=== PATIENT | male | born 1960 | race African-American/Black ===

== ENCOUNTER 2018-03-31 07:09 | Emergency (ER) | payer MEDICARE ==
[2018-03-31 07:17] VITALS: BP 155/96
[2018-03-31] MEDS ORDERED: DEXAMETHASONE SOD PHOS INJ 10 MG/1 ML VIAL IM ONE (07:45)
[2018-03-31] MEDS ORDERED: HYDROCODONE/ACETAMINOPHEN 5-325 MG TABLET PO ONE (07:45)
[2018-03-31] MEDS ORDERED: HYDROXYZINE PAMOATE 25 MG CAPSULE PO ONE (07:46)
--- NOTE | 2018-03-31 07:51 | ER Document Report ---
ED Skin Rash/Insect Bite/Abscs - General Chief Complaint: Insect Bite Stated Complaint: RIGHT ARM PAIN Time Seen by Provider: 03/31/18 07:35 Mode of Arrival: Ambulatory Information source: Patient Notes: Patient is a 58-year-old male who presents to the ER today for bug bites all over his body after sleeping in a house/bed last night with known bedbugs. Patient states he has slept here before and also had bedbug bites. Patient states that he had to sleep her last night as he is in town only for the day and had nowhere else to sleep. He states he does not ever have to sleep there again. Patient states that he took Benadryl last night and this morning which helped a little. He admits to blisters over a lot of the bites, some that have burst and are weeping. TRAVEL OUTSIDE OF THE [place] IN LAST 30 DAYS: No - Related Data Allergies/Adverse Reactions: No Known Allergies Allergy (Unverified 03/31/18 07:43) Past Medical History - General Information source: Patient - Social History Smoking Status: Current Every Day Smoker Frequency of alcohol use: Heavy Drug Abuse: Marijuana Family History: Reviewed & Not Pertinent Patient has suicidal ideation: No Patient has homicidal ideation: No - Past Medical History Cardiac Medical History: Reports: Hx Hypertension Renal/ Medical History: Denies: Hx Peritoneal Dialysis Past Surgical History: Reports: Hx Appendectomy Review of Systems - Review of Systems Constitutional: No symptoms reported EENT: No symptoms reported Cardiovascular: No symptoms reported Respiratory: No symptoms reported Gastrointestinal: No symptoms reported Genitourinary: No symptoms reported Male Genitourinary: No symptoms reported Musculoskeletal: No symptoms reported Skin: See HPI Hematologic/Lymphatic: No symptoms reported Neurological/Psychological: No symptoms reported Physical Exam - Vital signs Vitals: Temp Pulse Resp BP Pulse Ox 97.4 F 82 20 155/96 H 94 03/31/18 07:15 03/31/18 07:15 03/31/18 07:15 03/31/18 07:15 03/31/18 07:15 - Notes Notes: PHYSICAL EXAMINATION: GENERAL: Uncomfortable appearing, but in no acute distress. HEAD: Atraumatic, normocephalic. EYES: Pupils equal round and reactive to light, extraocular movements intact, sclera anicteric, conjunctiva are normal. ENT: ear canals without erythema or foreign body, TMs pearly lamar with good bony landmarks, nares patent, oropharynx clear without exudates. Moist mucous membranes. Airway patent NECK: Normal range of motion, supple without lymphadenopathy LUNGS: CTAB and equal. No wheezes rales or rhonchi. HEART: Regular rate and rhythm without murmurs EXTREMITIES: Normal range of motion, no pitting edema. No cyanosis. NEUROLOGICAL: Cranial nerves grossly intact. Normal sensory/motor exams. PSYCH: Normal mood, normal affect. SKIN: Warm, Dry, normal turgor, erythematous macules with overlying clear papules over right arm, right posterior neck, right upper and lower back, left ankle, left hip, some with large blisters, some blisters open and weeping clear fluid Course - Re-evaluation Re-evalutation: 03/31/18 07:50 Patient given steroid injection here, sent home with hydroxyzine and Keflex for some of the blisters are open and weeping. - Vital Signs Vital signs: Temp Pulse Resp BP Pulse Ox 97.4 F 82 20 155/96 H 94 03/31/18 07:15 03/31/18 07:15 03/31/18 07:15 03/31/18 07:15 03/31/18 07:15 Discharge - Discharge Clinical Impression: Bedbug bite Qualifiers: Encounter type: initial encounter Qualified Code(s): W57.XXXA - Bitten or stung by nonvenomous insect and other nonvenomous arthropods, initial encounter Condition: Stable Disposition: HOME, SELF-CARE Additional Instructions: Return immediately for any new or worsening symptoms. Follow up with primary care provider, call tomorrow to make followup appointment. Prescriptions: Cephalexin Monohydrate [Keflex 500 mg Capsule] 500 mg PO BID 5 Days #10 capsule Hydroxyzine Pamoate 25 mg PO Q6 PRN #30 capsule PRN Reason: Forms: Return to Work
== END 2018-03-31 08:02 | disposition home or self-care (01) ==
LOC: ER 07:09
DX: S40.861A Insect bite (nonvenomous) of right upper arm, initial encounter (principal); W57.XXXA Bitten or stung by nonvenomous insect and other nonvenomous arthropods, initial encounter; F17.200 Nicotine dependence, unspecified, uncomplicated; I10 Essential (primary) hypertension
CPT/HCPCS: 99281; 96372; A9270 ×2; J1100

== ENCOUNTER 2018-05-03 07:09 | Emergency (ER) | payer MEDICARE ==
--- NOTE | 2018-05-03 08:14 | ER Document Report ---
ED General - General Chief Complaint: Back Pain Stated Complaint: BACK PAIN Time Seen by Provider: 05/03/18 08:09 Mode of Arrival: Ambulatory Information source: Patient TRAVEL OUTSIDE OF THE [place] 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 [facility]. States he initially injured his back in 1980. Patient states he just wanted "shot of Depo-Medrol" and wants to leave after. Does not want any imaging done. Reports pain is 9 out of 10, sharp and throbbing. Denies fevers, chills, chest pain,palpitations, shortness of breath, dyspnea, nausea, vomiting, diarrhea, abdominal pain, hematuria,blurred vision, double vision, loss of vision, speech changes, LH, dizziness, syncope, headaches, wheezing, ST, URI, neck pain, weakness, bowel or bladder dysfunction, saddle anesthesia, numbness or tingling in bilateral upper or lower extremities equally, muscle paralysis, weakness in bilateral upper or lower extremities equally or rash. Denies IV drug use. - Related Data Allergies/Adverse Reactions: No Known Allergies Allergy (Verified 05/03/18 07:11) Past Medical History - General Information source: Patient - Social History Smoking Status: Unknown if Ever Smoked Family History: Reviewed & Not Pertinent Patient has suicidal ideation: No Patient has homicidal ideation: No - Past Medical History Cardiac Medical History: Reports: Hx Hypertension Renal/ Medical History: Denies: Hx Peritoneal Dialysis Past Surgical History: Reports: Hx Appendectomy Review of Systems - Review of Systems Constitutional: No symptoms reported EENT: No symptoms reported Cardiovascular: No symptoms reported Respiratory: No symptoms reported Gastrointestinal: No symptoms reported Genitourinary: No symptoms reported Male Genitourinary: No symptoms reported Musculoskeletal: See HPI Skin: No symptoms reported Hematologic/Lymphatic: No symptoms reported Neurological/Psychological: No symptoms reported Physical Exam - Vital signs Vitals: Temp Pulse Resp BP Pulse Ox 97.0 F 94 20 153/119 H 97 05/03/18 07:18 05/03/18 07:18 05/03/18 07:18 05/03/18 07:18 05/03/18 07:18 - Notes Notes: PHYSICAL EXAMINATION: GENERAL: Well-appearing, well-nourished and in no acute distress. HEAD: Atraumatic, normocephalic. EYES: Pupils equal round and reactive to light, extraocular movements intact, sclera anicteric, conjunctiva are normal. ENT: Nares patent, oropharynx clear without exudates. Moist mucous membranes. NECK: Normal range of motion, supple without lymphadenopathy LUNGS: Breath sounds clear to auscultation bilaterally and equal. No wheezes rales or rhonchi. HEART: Regular rate and rhythm without murmurs ABDOMEN: Soft, nontender, nondistended abdomen. No guarding, no rebound. No masses appreciated. Musculoskeletal: Normal range of motion, no pitting or edema. No cyanosis. Pain with flexion and extension at 45 degrees, positive straight leg test on right. Normal hip rotation. DTR +2 in BLE equally. Strength 5 out of 5 both distally and proximally to bilateral lower extremities normal motor and sensory function in BLE equally. Distal pulses + 2 BLE equally. Noted paraspinal tenderness near L2 and L3. No spinal tenderness. No CVA tenderness bilaterally. Femoral pulses + 2 bilaterally and equally. No abrasions, scars, lacerations, ecchymosis of any recent trauma. normal gait. NEUROLOGICAL: Cranial nerves grossly intact. Normal speech, normal gait. Normal sensory, motor exams SKIN: Warm, Dry, normal turgor, no rashes or lesions noted. - Psychological Associated symptoms: Aggressive, Agitated, Combative Course - Re-evaluation Re-evalutation: 05/03/18 08:43 Afebrile, vitals stable, no distress male who is very aggressive towards provider, was demanding "I want to get my shot now and I want to leave now". This provider tried to discuss with patient that we have been seeing other patients, there are only 2 providers in the ED at this time and we have been dealing with emergencies, we apologize for the weight and understand his frustration however we are going as fast as we can go in the safest manner. He was angry that he had to wait for her nurse to administer his injections. Pt given injection of Depo-Medrol and Toradol for pain control. Presentation of a well appearing patient complaining of acute on chronic back pain. No rapid progression of symptoms, systemic symptoms including fevers, chills, weight loss , history of recent bacterial infection, bilateral symptoms, numbness, weakness , difficulty walking, urinary retention or bowel incontinence, personal history of cancer, immunosuppression, diabetes, known AAA, or history of IV drug use. Exam is without point tenderness over vertebral bodies, pulsatile abdominal mass , and patient has symmetric and intact lower extremity strength, sensation, and reflexes without clonus. 2+ symmetric medial malleolar and dorsalis pedis pulses Based on history and physical, I have a very low suspicion of a concerning etiology of pain including epidural compression syndrome, spinal infection, transverse myelitis, malignancy, abdominal aortic aneurysm, renal colic, acute lower extremity claudication, neurogenic claudication, ankylosing spondylitis, or other intra-abdominal process. Due to absence of concerning risk factors in history and physical as well as absence of rapidly progressive, severe, or bilateral symptoms, will defer imaging at this point. Plan to manage conservatively with outpatient analgesia, analgesia, and physical therapy. - Acetaminophen 650 q 4 + ibuprofen 600 q 6 - Continue normal daily activities as tolerated by pain - Provide with standard musculoskeletal back pain exercise instructions - Instruct to follow up with primary care provider if symptoms not improving - Provide careful return precautions and concerning symptoms to watch for. I have reevaluated this patient multiple times and no significant life threatening changes, no signs of toxicity, sepsis or peritonitis are noted. The patient and I have discussed the diagnosis and risks, and we agree with discharging home and close follow-up. We also discussed returning to the Emergency Department immediately if new or worsening symptoms occur with the understanding that symptoms and presentations can change. At this time will discharge with return precautions and follow-up recommendations. Verbal discharge instructions given a the bedside and opportunity for questions given. We have discussed the symptoms which are most concerning (e.g., saddle anesthesia, urinary or bowel incontinence or retention, changing or worsening pain) that necessitate immediate return. Medication warnings reviewed. All questions and concerns answered by this provider. Patient is in agreement with this plan and has verbalized understanding of return precautions and the need for primary care follow-up in the next 24-72 hours. Patient verbalized understanding of plan of care and agree with plan of care. - Vital Signs Vital signs: Temp Pulse Resp BP Pulse Ox 97.0 F 94 20 153/119 H 97 05/03/18 07:18 05/03/18 07:18 07/07/18 07:18 05/03/18 07:18 05/03/18 07:18 Discharge - Discharge Clinical Impression: Acute exacerbation of chronic low back pain Condition: Stable Disposition: HOME, SELF-CARE Instructions: Low Back Pain ([facility]), Stretching Exercises for the Back ([facility]), Chronic Back Pain ([facility]) Additional Instructions: You have been seen in the Emergency Department (ED) today for back pain. Your workup and exam have not shown any acute abnormalities and you are likely suffering from an acute exacerbation of your chronic back pain from problems with your discs, but there is no treatment that will fix your symptoms at this time. Please take the naproxen that has been prescribed as directed. You should also purchase a local lidocaine cream such as "aspercreme with lidocaine " and use per bottle instructions to the affected area. Apply heat to the area as often as you are able. Continue to keep active and avoid prolonged periods of bed rest. Please follow up with your doctor as soon as possible regarding today's ED visit and your back pain. Return to the ED for worsening back pain, fever, weakness or numbness of either leg, or if you develop either (1) an inability to urinate or have bowel movements, or (2) loss of your ability to control your bathroom functions (if you start having "accidents"), or if you develop other new symptoms that concern you.concern you. Return immediately for any new or worsening symptoms. Follow up with primary care provider, call tomorrow to make followup appointment. Referrals: MARY KAY IBANEZ MD [ACTIVE STAFF] - Follow up in 3-5 days MIMA BOSTON MD [ACTIVE STAFF] - Follow up in 3-5 days
[2018-05-03] MEDS ORDERED: KETOROLAC TROMETHAMINE 60 MG/2 ML SDV IM ONE (08:47)
[2018-05-03] MEDS ORDERED: METHYLPREDNISOLONE ACETATE INJ 40 MG/1 ML ML IM STA (08:47)
[2018-05-03 08:58] VITALS: BP 140/90
== END 2018-05-03 08:58 | disposition home or self-care (01) ==
LOC: ER 07:09
DX: M54.5 Low back pain (principal); G89.29 Other chronic pain; I10 Essential (primary) hypertension
CPT/HCPCS: 99283; 96372; J1885; J1020

== ENCOUNTER 2018-05-05 09:45 | Emergency (ER) | payer MEDICARE ==
[2018-05-05 09:53] VITALS: BP 144/91
--- NOTE | 2018-05-05 10:04 | ER Document Report ---
ED General - General Chief Complaint: Sore Throat Stated Complaint: THROAT PAIN Time Seen by Provider: 05/05/18 09:59 Notes: 58-year-old male here with complaints of a pill stuck in his throat. Approximately 2 days ago, he attempted to swallow a very large Advil pill and states that he immediately felt like it was stuck in his throat. He was eventually able to swallow but states that he still has some irritation in his throat as if the pill is still there. He has tried drinking cold liquids and eating bread with not much relief. He is able to eat and drink otherwise and is tolerating his secretions. Denies fevers chills or any other symptoms. TRAVEL OUTSIDE OF THE [place] IN LAST 30 DAYS: No - Related Data Allergies/Adverse Reactions: No Known Allergies Allergy (Verified 05/03/18 07:11) Past Medical History - Social History Smoking Status: Unknown if Ever Smoked Family History: Reviewed & Not Pertinent Patient has suicidal ideation: No Patient has homicidal ideation: No - Past Medical History Cardiac Medical History: Reports: Hx Hypertension Renal/ Medical History: Denies: Hx Peritoneal Dialysis Past Surgical History: Reports: Hx Appendectomy Review of Systems - Review of Systems Notes: See history of present illness for pertinent positive review of systems; otherwise all review of systems have been reviewed and are negative Physical Exam - Vital signs Vitals: Temp Pulse Resp BP Pulse Ox 97.7 F 77 18 144/91 H 95 05/05/18 09:52 05/05/18 09:52 05/05/18 09:52 05/05/18 09:52 05/05/18 09:52 - Notes Notes: PHYSICAL EXAMINATION: GENERAL: Well-appearing and in no acute distress. HEAD: Atraumatic, normocephalic. EYES: Pupils equal round and reactive to light, extraocular movements intact, sclera anicteric, conjunctiva are normal. ENT: nares patent, oropharynx clear without exudates. Moist mucous membranes. NECK: Normal range of motion, supple without lymphadenopathy LUNGS: CTAB and equal. No wheezes rales or rhonchi. HEART: Regular rate and rhythm without murmurs ABDOMEN: Soft, no tenderness. No facial grimacing/wincing upon palpation. No guarding, no rebound. EXTREMITIES: Normal range of motion, no pitting edema. No cyanosis. NEUROLOGICAL: Cranial nerves grossly intact. Normal sensory/motor exams. PSYCH: Normal mood, normal affect. SKIN: Warm, Dry, normal turgor, no rashes or lesions noted Course - Re-evaluation Re-evalutation: 05/05/18 10:03 MEDICAL DECISION MAKING: Concern for throat irritation from the pill I believe it is unlikely that the pill is still in his posterior oropharynx He has no respiratory distress and is swallowing without difficulty Discussed with him to follow-up with ENT (info provided) for possible scoping Also instructed him to drink warm liquids such as coffee and tea Also instructed him to use Tylenol/Motrin for pain Patient understands and agrees to the plan of care - Vital Signs Vital signs: Temp Pulse Resp BP Pulse Ox 97.7 F 77 18 144/91 H 95 05/05/18 09:52 05/05/18 09:52 05/05/18 09:52 05/05/18 09:52 05/05/18 09:52 Discharge - Discharge Clinical Impression: Throat pain Condition: Good Disposition: HOME, SELF-CARE Additional Instructions: You were [facility] in [facility]. Drink plenty of warm liquids such as coffee & tea to help with the irritation. Please followup with your primary physician in the next few days for further management /evaluation. Please return to the emergency department for worsening of symptoms or any symptom that you deem to be concerning or life-threatening. Thank you for allowing us to be part of your care. Referrals: RISHI MALDONADO DO [ASSOCIATE] - Follow up in 3-5 days
== END 2018-05-05 10:04 | disposition home or self-care (01) ==
LOC: ER 09:45
DX: R07.0 Pain in throat (principal); I10 Essential (primary) hypertension
CPT/HCPCS: 99282

== ENCOUNTER 2018-06-05 07:11 | Emergency (ER) | payer MEDICARE, OTHER ==
--- NOTE | 2018-06-05 08:27 | ER Document Report ---
ED Medical Screen (RME) - General Chief Complaint: Urinary Problem Stated Complaint: URINATION PROBLEMS Time Seen by Provider: 06/05/18 08:23 Mode of Arrival: Ambulatory Information source: Patient Notes: Patient presents with complaints of urinary issues reports he is not voiding well. Also complains of possible STD. Reports of erectile dysfunction. I have greeted and performed a rapid initial assessment of this patient. A comprehensive ED assessment and evaluation of the patient, analysis of test results and completion of the medical decision making process will be conducted by additional ED providers. TRAVEL OUTSIDE OF THE [place] IN LAST 30 DAYS: No - Related Data Allergies/Adverse Reactions: No Known Allergies Allergy (Verified 05/03/18 07:11) Past Medical History - Social History Chew tobacco use (# tins/day): No Frequency of alcohol use: Social Drug Abuse: None - Past Medical History Cardiac Medical History: Reports: Hx Hypertension Renal/ Medical History: Denies: Hx Peritoneal Dialysis Past Surgical History: Reports: Hx Appendectomy Physical Exam - Vital signs Vitals: Temp Pulse Resp BP Pulse Ox 98.0 F 82 18 123/87 H 95 06/05/18 07:31 06/05/18 07:31 06/05/18 07:31 06/05/18 07:31 06/05/18 07:31 Course - Vital Signs Vital signs: Temp Pulse Resp BP Pulse Ox 97.7 F 78 18 140/99 H 96 06/05/18 08:21 06/05/18 08:21 06/05/18 07:31 06/05/18 08:21 06/05/18 08:21 Doctor's Discharge - Discharge Referrals: ASHER PHILLIPS MD [Primary Care Provider] - Follow up as needed
[2018-06-05 08:51] LABS: APPEARANCE,URINE CLEAR; BILIRUBIN,URINE NEGATIVE (NEGATIVE); COLOR,URINE STRAW; GLUCOSE, URINE >=500 mg/dL (NEGATIVE); KETONES,URINE TRACE mg/dL (NEGATIVE); LEUKOCYTE ESTERASE,URINE NEGATIVE (NEGATIVE); NITRITE,URINE NEGATIVE (NEGATIVE); PROTEIN,URINE NEGATIVE (NEGATIVE); URINE SPECIFIC GRAVITY 1.032; UROBILINOGEN,URINE NEGATIVE mg/dL (<2.0)
[2018-06-05] MEDS ORDERED: LIDOCAINE 1% INJ-PF (10 MG/ML) 30 ML SDV INJ ONE (09:23)
[2018-06-05] MEDS ORDERED: CEFTRIAXONE INJ 250 MG VIAL IM ONE (09:23)
[2018-06-05] MEDS ORDERED: AZITHROMYCIN 250 MG TABLET PO ONE (09:23)
[2018-06-05] MEDS ORDERED: MUPIROCIN 2% OINTMENT 22 GM TP ONE (09:23)
--- NOTE | 2018-06-05 09:36 | ER Document Report ---
ED Medical Screen (RME) - General Chief Complaint: Urinary Problem Stated Complaint: URINATION PROBLEMS Time Seen by Provider: 06/05/18 08:23 Mode of Arrival: Ambulatory Notes: 58-year-old male presented to ED for complaint of urinary frequency urgency voiding all the time. He states that the doctor put him on some blood pressure medicine and makes him urinate constantly and has erectile dysfunction. He states she is also concerned because he had unprotected sex with a lady and then he had some drainage around his penis. He stated he quit taking his blood sugar pressure medicine because he got tired of urinating constantly. He states he smokes a pack a day drinks at least a couple times a week and used cocaine about a week ago and smokes pot occasionally. He was seen in the pit and ordered a urine and a urine for GC and chlamydia. His UA shows greater than 500 glucose with a specific gravity 1.032. His Accu-Chek was greater than 500. He has been ordered labs and IV fluids and 10 units regular insulin Per Dr Christensen's suggestion. Patient will need to be reevaluated after the fluids. I have greeted and performed a rapid initial assessment of this patient. A comprehensive ED assessment and evaluation of the patient, analysis of test results and completion of medical decision making process will be conducted by an additional ED providers. TRAVEL OUTSIDE OF THE [place] IN LAST 30 DAYS: No - Related Data Allergies/Adverse Reactions: No Known Allergies Allergy (Verified 05/03/18 07:11) Past Medical History - Social History Chew tobacco use (# tins/day): No Frequency of alcohol use: Social Drug Abuse: None - Past Medical History Cardiac Medical History: Reports: Hx Hypertension Renal/ Medical History: Denies: Hx Peritoneal Dialysis Past Surgical History: Reports: Hx Appendectomy Physical Exam - Vital signs Vitals: Temp Pulse Resp BP Pulse Ox 98.0 F 82 18 123/87 H 95 06/05/18 07:31 06/05/18 07:31 06/05/18 07:31 06/05/18 07:31 06/05/18 07:31 Course - Vital Signs Vital signs: Temp Pulse Resp BP Pulse Ox 97.7 F 78 18 140/99 H 96 06/05/18 08:21 06/05/18 08:21 06/05/18 07:31 06/05/18 08:21 06/05/18 08:21 - Laboratory Laboratory results interpreted by me: 06/05/18 08:35 Urine Glucose (UA) >=500 H Urine Ketones TRACE H Urine Ascorbic Acid 40 H Doctor's Discharge - Discharge Referrals: ASHER PHILLIPS MD [Primary Care Provider] - Follow up as needed
[2018-06-05] MEDS: RINGERS SOLUTION,LACTATED 1,000 ML IV PRN ×2 (10:01→10:31)
[2018-06-05 10:03] LABS: ABSOLUTE LYMPHOCYTES (AUTO) 1.4 10^3/uL (0.5-4.7); ABSOLUTE MONOCYTES (AUTO) 0.3 10^3/uL (0.1-1.4); ABSOLUTE NEUT (AUTO) 2.6 10^3/uL (1.7-8.2); BASOPHILS % (AUTO) 0.5 % (0-2); EOSINOPHILS % (AUTO) 0.6 % (0-6); HEMATOCRIT 45.5 % (37.9-51.0); HEMOGLOBIN 15.1 g/dL (13.5-17.0); LYMPHOCYTES % (AUTO) 32.7 % (13-45); MEAN CORPUSCULAR HEMOGLOBIN 29.2 pg (27.0-33.4); MEAN CORPUSCULAR HGB CONC 33.2 g/dL (32.0-36.0); MEAN CORPUSCULAR VOLUME 88 fl (80-97); MONOCYTES % (AUTO) 6.4 % (3-13); PLATELET COUNT 217 10^3/uL (150-450); RED BLOOD COUNT 5.18 10^6/uL (4.35-5.55); RED CELL DISTRIBUTION WIDTH 13.4 % (11.5-14.0); SEGMENTED NEUTROPHILS % (AUTO) 59.8 % (42-78); TOTAL CELLS COUNTED % (AUTO) 100 %; WHITE BLOOD COUNT 4.4 10^3/uL (4.0-10.5)
[2018-06-05 10:06] LABS: VENOUS BLOOD BASE EXCESS -2.4 mmol/L; VENOUS BLOOD HCO3 23.4 mmol/L (20-32); VENOUS BLOOD PCO2 43.9 mmHg (35-63); VENOUS BLOOD PH 7.34 (7.30-7.42)
[2018-06-05 10:25] LABS: ALANINE AMINOTRANSFERASE 23 U/L (21-72); ALKALINE PHOSPHATASE 246 U/L (38-126); ANION GAP 16 (5-19); ASPARTATE AMINO TRANSFERASE 20 U/L (17-59); BILIRUBIN,DIRECT 0.3 mg/dL (0.0-0.4); BILIRUBIN,TOTAL 0.3 mg/dL (0.2-1.3); BLOOD UREA NITROGEN 12 mg/dL (7-20); CALCIUM 9.2 mg/dL (8.4-10.2); CARBON DIOXIDE 22 mmol/L (22-30); CHLORIDE 94 mmol/L (98-107); CREATINE KINASE 113 U/L (55-170); POTASSIUM 4.6 mmol/L (3.6-5.0); SODIUM 132.2 mmol/L (137-145); TOTAL PROTEIN 6.4 g/dL (6.3-8.2)
[2018-06-05 10:31] LABS: CHLAM PCR NOT DETECTED (NOT DETECT); GON PCR NOT DETECTED (NOT DETECT)
[2018-06-05] MEDS ORDERED: INSULIN REG, HUMAN 100 UNIT/ML 3 ML VIAL (PYX) SUBCUT ONE (10:33)
[2018-06-05 10:39] LABS: CREATINE KINASE MB 0.93 ng/mL (<4.55)
[2018-06-05 10:41] LABS: GLUCOSE 607 mg/dL (75-110)
[2018-06-05 10:43] LABS: TROPONIN I < 0.012 ng/mL
--- NOTE | 2018-06-05 11:16 | ER Document Report ---
ED General <LITTLE CH - Last Filed: 06/05/18 13:09> - General Mode of Arrival: Ambulatory Information source: Patient TRAVEL OUTSIDE OF THE [place] IN LAST 30 DAYS: No <WHITNEY WHITE - Last Filed: 06/05/18 13:36> - General Chief Complaint: Urinary Problem Stated Complaint: URINATION PROBLEMS Time Seen by Provider: 06/05/18 08:23 Notes: 58-year-old male who presents to the emergency department today with complaints of a rash on his penis and concerns for STD. Patient states "my girlfriend went down on me and she has gingivitis so I think I have an infection now". Patient also mentions that since being started on lisinopril he has had erectile dysfunction. Patient states that he has been told he had diabetes in the past but this was after eating sweets. Patient states he has had urinary frequency for the last week and a half. (WHITNEY WHITE) - Related Data Allergies/Adverse Reactions: No Known Allergies Allergy (Verified 05/03/18 07:11) Past Medical History - General Information source: Patient - Social History Smoking Status: Current Every Day Smoker Chew tobacco use (# tins/day): No Frequency of alcohol use: Occasional Drug Abuse: Marijuana Family History: Reviewed & Not Pertinent Patient has suicidal ideation: No Patient has homicidal ideation: No - Past Medical History Cardiac Medical History: Reports: Hx Hypertension Renal/ Medical History: Denies: Hx Peritoneal Dialysis Past Surgical History: Reports: Hx Appendectomy <WHITNEY WHITE - Last Filed: 06/05/18 13:36> Review of Systems - Review of Systems Constitutional: No symptoms reported EENT: No symptoms reported Cardiovascular: No symptoms reported Respiratory: No symptoms reported Gastrointestinal: No symptoms reported Genitourinary: No symptoms reported Male Genitourinary: See HPI, Erectile dysfunction, Other - penile itching Musculoskeletal: No symptoms reported Skin: No symptoms reported Hematologic/Lymphatic: No symptoms reported Neurological/Psychological: No symptoms reported -: Yes All other systems reviewed and negative <WHITNEY WHITE - Last Filed: 06/05/18 13:36> Physical Exam <LITTLE CH - Last Filed: 06/05/18 13:09> <WHITNEY WHITE - Last Filed: 06/05/18 13:36> - Vital signs Vitals: Temp Pulse Resp BP Pulse Ox 98.0 F 82 18 123/87 H 95 06/05/18 07:31 06/05/18 07:31 06/05/18 07:31 06/05/18 07:31 06/05/18 07:31 - Notes Notes: Physical Exam: General: Alert, appears well. HEENT: Normocephalic. Atraumatic. PERRL. Extraocular movements intact. Oropharynx clear. Neck: Supple. Non-tender. Respiratory: No respiratory distress. Clear and equal breath sounds bilaterally. Cardiovascular: Regular rate and rhythm. Abdominal: Normal Inspection. Non-tender. No distension. Normal Bowel Sounds. Male genitourinary: White smegma at the base of the penis, patient complains that this area itches. Back: Non-tender. No deformity or step off. Extremities: Moves all four extremities. Upper extremities: Normal inspection. Normal ROM. Lower extremities: Normal inspection. No edema. Normal ROM. Neurological: Normal cognition. AAOx4. Normal speech. Psychological: Normal affect. Normal Mood. Skin: Warm. Dry. Normal color. (WHITNEY WHITE) Course - Laboratory Result Diagrams: 06/05/18 09:42 06/05/18 09:42 - EKG Interpretation by Al EKG shows normal: Sinus rhythm, Union, Intervals, QRS Complexes. abnormal: ST-T Waves - Inferior T abnormalities Rhythm: APC's Union/QRS: Left axis deviation When compared to previous EKG there are: Previous EKG unavailable <LITTLE CH - Last Filed: 06/05/18 13:09> - Laboratory Result Diagrams: 06/05/18 09:42 06/05/18 09:42 <WHITNEY WHITE - Last Filed: 06/05/18 13:36> - Vital Signs Vital signs: Temp Pulse Resp BP Pulse Ox 97.7 F 78 20 128/97 H 95 06/05/18 08:21 06/05/18 08:21 06/05/18 12:13 06/05/18 12:13 06/05/18 12:13 - Laboratory Laboratory results interpreted by ca: 06/05/18 06/05/18 06/05/18 08:35 09:24 09:42 Sodium 132.2 L Chloride 94 L Glucose 607 H* POC Glucose > 550 H* Hemoglobin A1c % Alkaline Phosphatase 246 H Urine Glucose (UA) >=500 H Urine Ketones TRACE H Urine Ascorbic Acid 40 H 06/05/18 06/05/18 06/05/18 09:42 10:27 11:48 Sodium Chloride Glucose POC Glucose 522 H* 455 H* Hemoglobin A1c % > 14.0 H Alkaline Phosphatase Urine Glucose (UA) Urine Ketones Urine Ascorbic Acid Discharge <LITTLE CH - Last Filed: 06/05/18 13:09> <WHITNEY WHITE - Last Filed: 06/05/18 13:36> - Discharge Clinical Impression: Cocaine abuse, Yeast infection of the skin Type 2 diabetes mellitus Qualifiers: Diabetes mellitus superintendent container terminal insulin use: without superintendent container terminal use Diabetes mellitus complication status: with unspecified complications Qualified Code(s): E11.8 - Type 2 diabetes mellitus with unspecified complications Condition: Stable Disposition: HOME, SELF-CARE Additional Instructions: Diabetes: You have an abnormally high blood sugar called diabetes. Uncontrolled high blood sugar leads to early heart disease, strokes, nerve damage, eye damage, and kidney damage. All diabetics should follow a diet designed to control the blood sugar. Overweight diabetics should exercise regularly and lose weight. If this is not sufficient to control the blood sugar, pills or insulin shots are necessary. Younger people who develop diabetes almost always require insulin daily. Home testing of blood sugars or urine sugar is required. Diabetic teaching is available to help you figure insulin doses and monitor the blood sugar. Call the physician if there is faintness, excess sleepiness, or very rapid breathing. If hypoglycemia (LOW blood sugar) develops, symptoms are shakiness, weakness, sweating, and confusion. In this case, you should eat or drink something with sugar at once. Cocaine Abuse: Cocaine causes many dangerous medical problems. Problems can occur even with "usual" amounts. Cocaine affects judgement, creating a sense of invulnerability. Cocaine users often make bad decisions that seem "great" at the time. Most cocaine users eventually will be hurt by bad job performance, damaged personal relations, crime, and unsafe sexual practices. Toxic effects of cocaine can include seizures, hallucinations, delusions, high blood pressure, heart damage, or sudden . There's always the risk of a "bad batch." But heart attacks, brain hemorrhages, or cardiac arrest can occur unpredictably even with "normal" use. Injection of cocaine is risky for abscesses, endocarditis (heart infection) , pneumonia, and AIDS. Withdrawal from cocaine often causes anxiety and drug cravings. Some users become paranoid and psychotic. Many treatment programs are available, but you must make the decision to quit. Medication can be prescribed to control the symptoms of cocaine toxicity (beta blockers or benzodiazepines). Withdrawal symptoms may require tranquilizers. Take medications as prescribed for your diabetes. Avoid eating sugar, regular sodas, candy, and sweets in general. Drink plenty of fluids every day. Use Monistat Derm cream on the penis area 3 times a daily for the next several days. Follow-up with your medical doctor to manage your diabetes. Prescriptions: Metformin HCl 1,000 mg PO BID #60 tablet Referrals: ASHER PHILLIPS MD [Primary Care Provider] - Follow up as needed Scribe Attestation: 06/05/18 13:08 I personally performed the services described in the documentation, reviewed and edited the documentation which was dictated to the scribe in my presence, and it accurately records my words and actions. (LITTLE CH) Scribe Documentation - Scribe Written by Ofelia:: Ofelia Wilcox, 06/05/2018 1335 acting as scribe for :: Elissa <WHITNEY WHITE - Last Filed: 06/05/18 13:36>
--- NOTE | 2018-06-05 11:36 | EKG REPORT ---
SEVERITY:- ABNORMAL ECG - SINUS RHYTHM ATRIAL PREMATURE COMPLEX BORDERLINE LEFT AXIS DEVIATION ABNORMAL T, CONSIDER ISCHEMIA, INFERIOR LEADS : Confirmed by: Gi Harris MD 05-Jun-2018 11:35:27
[2018-06-05 12:15] VITALS: BP 128/97
[2018-06-05 12:24] LABS: URINE AMPHETAMINES SCREEN NEGATIVE; URINE BARBITURATES SCREEN NEGATIVE; URINE BENZODIAZEPINES SCREEN NEGATIVE; URINE COCAINE SCREEN UNCONFIRMED POSITIVE; URINE MARIJUANA (THC) SCREEN NEGATIVE; URINE METHADONE SCREEN NEGATIVE; URINE PHENCYCLIDINE SCREEN NEGATIVE
== END 2018-06-05 13:16 | disposition home or self-care (01) ==
LOC: ER 07:11
DX: R30.0 Dysuria (principal); F14.10 Cocaine abuse, uncomplicated; B37.2 Candidiasis of skin and nail; E11.8 Type 2 diabetes mellitus with unspecified complications; I10 Essential (primary) hypertension; F17.210 Nicotine dependence, cigarettes, uncomplicated; Z20.2 Contact with and (suspected) exposure to infections with a predominantly sexual mode of transmission
CPT/HCPCS: 93005; 99284; 96372; 96365; 36415; 82553; 82962; 82550; 83735; 85025; 80053; 81001; 84484; 80307; 83036; 87491; 87591; 82803; 93010; A9270 ×3; J3490; J7120; J0696; J1815

== ENCOUNTER 2018-06-15 09:57 | Emergency (ER) | payer OTHER ==
[2018-06-15 10:02] VITALS: BP 128/88
== END 2018-06-15 10:02 | disposition left against medical advice (07) ==
LOC: ER 09:57
DX: Z53.21 Procedure and treatment not carried out due to patient leaving prior to being seen by health care provider (principal)
CPT/HCPCS: 82962

== ENCOUNTER 2018-07-20 08:41 | Emergency (ER) | payer MEDICARE, OTHER ==
[2018-07-20 08:52] VITALS: BP 147/92
[2018-07-20] MEDS ORDERED: LIDOCAINE 5% (700 MG) TRANSDERMAL ADH..PATCH TP ONE (09:35)
--- NOTE | 2018-07-20 09:36 | RADIOLOGY REPORT (SQ) ---
EXAM DESCRIPTION: SHOULDER RIGHT 2 OR MORE VIEWS COMPLETED DATE/TIME: 07/20/2018 9:21 am REASON FOR STUDY: pain COMPARISON: None. NUMBER OF VIEWS: Three views. TECHNIQUE: Internal rotation, external rotation, and Y view images acquired of the right shoulder. LIMITATIONS: None. FINDINGS: MINERALIZATION: Normal. BONES: No acute fracture or dislocation. No worrisome bone lesions. No significant osteophytes. GLENOHUMERAL JOINT: No significant findings. ACROMIOCLAVICULAR JOINT: No large osteophytes. SOFT TISSUES: No calcifications. VISUALIZED RIBS, SPINE, AND LUNG: No other significant finding. OTHER: No other significant finding. IMPRESSION: NEGATIVE STUDY OF THE RIGHT SHOULDER. NO EXPLANATION FOR PAIN. TECHNICAL DOCUMENTATION: JOB ID: [id number] [employer]- All Rights Reserved Reading location - IP/workstation name: [email or web address]
--- NOTE | 2018-07-20 09:40 | ER Document Report ---
HPI - HPI Patient complains to provider of: Right shoulder pain Onset: Other - 2 weeks Onset/Duration: Persistent Quality of pain: Achy Pain Level: 4 Context: Patient presents complaining of right shoulder pain for the past 2 weeks. Patient denies any injury. Associated Symptoms: Other - Right shoulder pain. denies: Chest pain Exacerbated by: Movement Relieved by: Remaining still Similar symptoms previously: No Recently seen / treated by doctor: No - ROS ROS below otherwise negative: Yes Systems Reviewed and Negative: Yes All other systems reviewed and negative - CONSTITUTIONAL Constitutional: DENIES: Fever - CARDIOVASCULAR Cardiovascular: DENIES: Chest pain - RESPIRATORY Respiratory: DENIES: Trouble Breathing, Coughing - GASTROINTESTINAL Gastrointestinal: DENIES: Nausea - MUSCULOSKELETAL Musculoskeletal: REPORTS: Extremity pain. DENIES: Back Pain, Swelling - DERM Skin Color: Normal Skin Problems: None Past Medical History - General Information source: Patient - Social History Smoking Status: Current Every Day Smoker Smoking Education Provided: Yes Frequency of alcohol use: None Drug Abuse: None Family History: Reviewed & Not Pertinent - Past Medical History Cardiac Medical History: Reports: Hx Hypertension Endocrine Medical History: Reports: Hx Diabetes Mellitus Type 2 Renal/ Medical History: Denies: Hx Peritoneal Dialysis Musculoskeletal Medical History: Reports Other - Back pain Past Surgical History: Reports: Hx Appendectomy Vertical Provider Document - CONSTITUTIONAL Agree With Documented VS: Yes Exam Limitations: No Limitations General Appearance: WD/WN, No Apparent Distress - INFECTION CONTROL TRAVEL OUTSIDE OF THE [place] IN LAST 30 DAYS: No - HEENT HEENT: Atraumatic, Normocephalic - NECK Neck: Normal Inspection, Supple - RESPIRATORY Respiratory: Breath Sounds Normal, No Respiratory Distress - CARDIOVASCULAR Cardiovascular: Regular Rate, Regular Rhythm, No Murmur Pulses: Normal: Radial - BACK Back: Normal Inspection - MUSCULOSKELETAL/EXTREMETIES Musculoskeletal/Extremeties: MAEW, FROM, Tender - Tenderness to right AC joint with range of motion, no edema, no deformity, no dislocation, No Edema. negative: Eccymosis Notes: Tenderness increases with right shoulder extension and abduction - NEURO Level of Consciousness: Awake, Alert, Appropriate Motor/Sensory: No Motor Deficit - DERM Integumentary: Warm, Dry, No Rash Course - Vital Signs Vital signs: Temp Pulse Resp BP Pulse Ox 98.1 F 60 16 147/92 H 99 07/20/18 08:47 07/20/18 08:47 07/20/18 08:47 07/20/18 08:47 07/20/18 08:47 Discharge - Discharge Clinical Impression: Arthritic-like pain Qualifiers: Joint pain location: shoulder Laterality: right Qualified Code(s): M25.511 - Pain in right shoulder Condition: Stable Disposition: HOME, SELF-CARE Instructions: Acetaminophen, Arthritis ([facility]) Additional Instructions: Return immediately for any new or worsening symptoms Followup with your primary care provider, call tomorrow to make a followup appointment Prescriptions: Tramadol HCl [Ultram 50 mg Tablet] 50 mg PO ASDIR PRN #15 tablet PRN Reason: Forms: Smoking Cessation Education Referrals: [facility] [Provider Group] - Follow up as needed [facility] [Provider Group] - Follow up as needed
== END 2018-07-20 09:45 | disposition home or self-care (01) ==
LOC: ER 08:41
DX: M25.511 Pain in right shoulder (principal); F17.200 Nicotine dependence, unspecified, uncomplicated; I10 Essential (primary) hypertension; E11.9 Type 2 diabetes mellitus without complications
CPT/HCPCS: 99283

== ENCOUNTER 2019-11-01 08:52 | Emergency (ER) | payer MEDICARE, OTHER ==
--- NOTE | 2019-11-01 11:12 | ER Document Report ---
HPI - HPI Time Seen by Provider: 11/01/19 09:14 Pain Level: Denies Context: Patient is a 59-year-old male who presents to the emergency department with a chief complaint of rectal and anal pain. Patient states that the area has been itchy and it feels like he has hemorrhoids to the area. He states that he has a history of rectal abscesses in the past. Denies any fever, body aches, chills, or any other symptoms. States that he feels like there is bumps to the area. He has been scratching the area. - CONSTITUTIONAL Constitutional: DENIES: Fever, Chills - EENT EENT: DENIES: Sore Throat, Ear Pain, Eye problems - NEURO Neurology: DENIES: Headache, Weakness, Vision blurred, Dizzinesss / Vertigo - CARDIOVASCULAR Cardiovascular: DENIES: Chest pain - RESPIRATORY Respiratory: DENIES: Trouble Breathing, Coughing - GASTROINTESTINAL Gastrointestinal: DENIES: Abdominal Pain, Black / Bloody Stools Notes: Rectal/anal pain - URINARY Urinary: DENIES: Dysuria, Urgency, Frequency - MUSCULOSKELETAL Musculoskeletal: DENIES: Extremity pain Past Medical History - Social History Smoking Status: Current Every Day Smoker Chew tobacco use (# tins/day): No Frequency of alcohol use: Occasional Drug Abuse: Marijuana Family History: Reviewed & Not Pertinent Patient has suicidal ideation: No Patient has homicidal ideation: No - Past Medical History Cardiac Medical History: Reports: Hx Hypertension Endocrine Medical History: Reports: Hx Diabetes Mellitus Type 2 Renal/ Medical History: Denies: Hx Peritoneal Dialysis Musculoskeletal Medical History: Reports Hx Arthritis Past Surgical History: Reports: Hx Appendectomy Vertical Provider Document - CONSTITUTIONAL Agree With Documented VS: Yes Exam Limitations: No Limitations General Appearance: No Apparent Distress - INFECTION CONTROL TRAVEL OUTSIDE OF THE [place] IN LAST 30 DAYS: No - HEENT HEENT: Atraumatic, Normocephalic, PERRLA - NECK Neck: Normal Inspection - RESPIRATORY Respiratory: No Respiratory Distress - CARDIOVASCULAR Cardiovascular: Regular Rate, Regular Rhythm Pulses: Normal: Radial - GI/ABDOMEN Gastrointestinal: Abdomen Soft, Abdomen Non-Tender Notes: Open sores noted to anal area. No fluctuance noted in the rectum. - MUSCULOSKELETAL/EXTREMETIES Musculoskeletal/Extremeties: FROM - NEURO Level of Consciousness: Awake, Alert, Appropriate Motor/Sensory: No Motor Deficit, No Sensory Deficit - DERM Integumentary: Warm, Dry, No Rash Course - Re-evaluation Re-evalutation: 11/01/19 11:09 Dora RN at bedside. Rectal exam done and no rectal abscess appreciated on exam. Patient does have some very small open sores noted to his rectum. I offered the patient some lidocaine gel. He became very upset and states that, "if you do not know what it is, I have an appointment with GI tomorrow. If you can't help me, I'll just see my GI doctor." I offered him lidocaine, aloe, and hydrocortisone for this problem to help with the itchiness and pain. He states that he did not want it, but I ended up writing a prescription for him anyways. Advised him to follow-up with GI tomorrow. He is in agreement with following up with GI. Follow-up precautions were given. Verbal discharge instructions were given to the patient. They verbalized understanding. They are stable for discharge. - Vital Signs Vital signs: Temp Pulse Resp BP Pulse Ox 98.0 F 65 16 159/105 H 98 11/01/19 08:56 11/01/19 08:56 11/01/19 08:56 11/01/19 08:56 11/01/19 08:56 Discharge - Discharge Clinical Impression: Anal or rectal pain High blood pressure Qualifiers: Hypertension type: unspecified Qualified Code(s): I10 - Essential (primary) hypertension Condition: Stable Disposition: HOME, SELF-CARE Additional Instructions: You were seen here in the ED for anal/rectal pain. You have some pain sores noted to your anal area. There is no abscess noted on your physical exam. You are being sent home with a topical cream to help with the pain and itchiness. Please follow-up with your GI doctor in regards to this visit. If you have worsening symptoms, please return to the emergency department. Your blood pressure was high here in the emergency department. Please follow-up with your primary care provider regards to this visit. Prescriptions: Hydrocortisone/Lidocaine/Aloe [Lidocaine-Hc 2.8-0.55% Gel] 100 gm TOP Q4H PRN #1 gel.w.[email or web address] PRN Reason: Forms: Elevated Blood Pressure
[2019-11-01 11:26] VITALS: BP 171/101
== END 2019-11-01 11:26 | disposition home or self-care (01) ==
LOC: ER 08:52
DX: K62.89 Other specified diseases of anus and rectum (principal); I10 Essential (primary) hypertension; F17.200 Nicotine dependence, unspecified, uncomplicated; E11.9 Type 2 diabetes mellitus without complications
CPT/HCPCS: 99283

== ENCOUNTER 2020-01-13 02:12 | Emergency (ER) | payer MEDICARE ==
--- NOTE | 2020-01-13 03:01 | RADIOLOGY REPORT (SQ) ---
EXAM DESCRIPTION: XR CHEST 1 VIEW COMPLETED DATE/TME: 01/13/2020 02:20 CLINICAL HISTORY: 59 years, Male, SOB COMPARISON: None. NUMBER OF VIEWS: 1 TECHNIQUE: Portable chest LIMITATIONS: None. FINDINGS: The heart size is normal. Mild atheromatous change thoracic aorta. Mild diffuse prominence of the pulmonary interstitium. Tiny bibasilar effusions are suspected. Superimposed airspace opacities in the lung bases. No pneumothorax IMPRESSION: Mild interstitial prominence could reflect interstitial edema and/or pneumonitis. Superimposed airspace opacities over each lung base. Suspected tiny bibasilar effusions. copyright 2010 [employer]- All Rights Reserved
[2020-01-13 03:12] LABS: ABSOLUTE LYMPHOCYTES (AUTO) 1.6 10^3/uL (0.5-4.7); ABSOLUTE MONOCYTES (AUTO) 0.3 10^3/uL (0.1-1.4); ABSOLUTE NEUT (AUTO) 3.6 10^3/uL (1.7-8.2); BASOPHILS % (AUTO) 0.4 % (0-2); EOSINOPHILS % (AUTO) 0.7 % (0-6); HEMATOCRIT 41.4 % (37.9-51.0); HEMOGLOBIN 14.2 g/dL (13.5-17.0); LYMPHOCYTES % (AUTO) 28.3 % (13-45); MEAN CORPUSCULAR HGB CONC 34.2 g/dL (32.0-36.0); MEAN CORPUSCULAR VOLUME 91 fl (80-97); MONOCYTES % (AUTO) 4.6 % (3-13); PLATELET COUNT 188 10^3/uL (150-450); RED BLOOD COUNT 4.56 10^6/uL (4.35-5.55); RED CELL DISTRIBUTION WIDTH 14.1 % (11.5-14.0); TOTAL CELLS COUNTED % (AUTO) 100 %; WHITE BLOOD COUNT 5.5 10^3/uL (4.0-10.5)
[2020-01-13 03:26] LABS: ALBUMIN 3.8 g/dL (3.5-5.0); ALKALINE PHOSPHATASE 110 U/L (38-126); ANION GAP 9 (5-19); ASPARTATE AMINO TRANSFERASE 44 U/L (17-59); BILIRUBIN,TOTAL 0.3 mg/dL (0.2-1.3); BLOOD UREA NITROGEN 19 mg/dL (7-20); CALCIUM 8.9 mg/dL (8.4-10.2); CARBON DIOXIDE 20 mmol/L (22-30); CHLORIDE 109 mmol/L (98-107); CREATINE KINASE 213 U/L (55-170); GLUCOSE 149 mg/dL (75-110); POTASSIUM 3.9 mmol/L (3.6-5.0); TOTAL PROTEIN 6.4 g/dL (6.3-8.2)
[2020-01-13 03:49] LABS: CREATINE KINASE MB 2.72 ng/mL (<4.55); NT PRO BNP 684 pg/mL (<125)
[2020-01-13 03:53] LABS: TROPONIN I < 0.012 ng/mL
[2020-01-13] MEDS ORDERED: ALBUTEROL SULFATE 0.083% NEB 2.5 MG/3 ML AMPUL NEB ONE (04:30)
[2020-01-13] MEDS ORDERED: IPRATROPIUM/ALBUTEROL 0.5-2.5 MG/3 ML AMPUL NEB ONE (04:30)
[2020-01-13] MEDS ORDERED: MAGNESIUM SULFATE/D5W 1 GM/100 ML RTUPB IV ONE ×2 (04:30→04:31)
[2020-01-13] MEDS ORDERED: METHYLPREDNISOLONE INJ 125 MG/2 ML SDV IV ONE (04:31)
[2020-01-13] MEDS ORDERED: LEVOFLOXACIN 750 MG TABLET PO ONE (04:36)
--- NOTE | 2020-01-13 04:43 | ER Document Report ---
ED General - General Chief Complaint: Shortness Of Breath Stated Complaint: DIFFICULTY BREATHING Time Seen by Provider: 01/13/20 04:09 TRAVEL OUTSIDE OF THE [place] IN LAST 30 DAYS: No - HPI Notes: Patient is a 59-year-old male with history of COPD, hypertension, diet- controlled diabetes presents complaining of shortness of breath, productive cough that began last night. He is able to eat and drink without difficulty otherwise. He is urinating normally and having normal bowel movements. Denies drug allergies. Denies any headache, fever, neck pain, URI, sore throat, chest pain, palpitations, syncope, abdominal pain, nausea/vomiting/diarrhea, urinary retention, dysuria, hematuria, or rash. - Related Data Allergies/Adverse Reactions: No Known Allergies Allergy (Verified 07/20/18 08:42) Past Medical History - Social History Smoking Status: Current Every Day Smoker Family History: Reviewed & Not Pertinent Patient has suicidal ideation: No Patient has homicidal ideation: No - Past Medical History Cardiac Medical History: Reports: Hx Hypertension Endocrine Medical History: Reports: Hx Diabetes Mellitus Type 2 Renal/ Medical History: Denies: Hx Peritoneal Dialysis Musculoskeletal Medical History: Reports Hx Arthritis Past Surgical History: Reports: Hx Appendectomy Review of Systems - Review of Systems -: Yes All other systems reviewed and negative Physical Exam - Vital signs Vitals: Pulse Ox 90 L 01/13/20 02:13 - Notes Notes: PHYSICAL EXAMINATION: GENERAL: Well-appearing, well-nourished and in no acute distress. HEAD: Atraumatic, normocephalic. EYES: Pupils equal round and reactive to light, extraocular movements intact, sclera anicteric, conjunctiva are normal. ENT: Nares patent and without discharge. oropharynx clear without exudates. No tonsilar hypertrophy or erythema. Moist mucous membranes. NECK: Normal range of motion, supple without lymphadenopathy LUNGS: very diminished b/l. No retractions. HEART: Regular rate and rhythm without murmurs, rubs, gallops. ABDOMEN: Soft, nontender, nondistended abdomen. No guarding, no rebound. No masses appreciated. Normal bowel sounds present. No CVA tenderness bilaterally. Musculoskeletal: FROM to passive/active. Strength 5+/5. Kelsy neg. No asymmetry to LE's. Extremities: No cyanosis, clubbing, or edema b/l. Peripheral pulses 2+. Capillary refill less than 3 seconds. NEUROLOGICAL: Normal speech, normal gait. PSYCH: Normal mood, normal affect. SKIN: Warm, Dry, normal turgor, no rashes or lesions noted. Course - Re-evaluation Re-evalutation: 01/13/20 04:41 Patient's x-ray does show bilateral basilar pneumonia. He does not have any elevated white count or fever. No tachycardia, significant hypoxia, or tachypn ea. I will give him the basic treatment for COPD exacerbation to open him up as much as we can and reevaluate at that time. If he has any further shortness of breath or issues when he ambulates we may consider admission to the hospital. I did review with Dr. Souza who is in agreement with plan at this time. 01/13/20 05:37 Patient is an afebrile, well-hydrated, 59-year-old male who presents with a bilateral basilar pneumonia. Vitals are except without significant tachycardia, tachypnea, or hypoxia. PE is otherwise unremarkable. Patient's lung sounds have improved after treatment. Patient states that he is feeling much better. He does not have any shortness of breath or dyspnea on exertion at this time. Patient is nontoxic-appearing and is tolerating p.o. without difficulty. Labs acceptable otherwise. No further work-up warranted. Patient does not have any known exposure to coronavirus. Low suspicion for any ACS, PE, pneumothorax, pericarditis, dissection, respiratory compromise, severe dehydration, sepsis, meningitis, or other systemic emergent condition at this time. Patient is aware that her condition can change from initial presentation and she needs to monitor symptoms closely and seek medical attention for any acute changes. First dose of Levaquin given here today. Prescription for home given. Recommend conservative measures for symptoms. Recheck with your PCM in 2-3 days. Return to the ED with any worsening/concerning symptoms otherwise as reviewed in discharge. Patient is in agreement. - Vital Signs Vital signs: Temp Pulse Resp BP Pulse Ox 97.5 F 92 18 172/118 H 95 01/13/20 02:15 01/13/20 02:15 01/13/20 02:15 01/13/20 02:15 01/13/20 02:15 - Laboratory Result Diagrams: 01/13/20 03:04 01/13/20 03:04 Laboratory results interpreted by me: 01/13/20 01/13/20 01/13/20 03:04 03:04 03:04 RDW 14.1 H Chloride 109 H Carbon Dioxide 20 L Glucose 149 H Creatine Kinase 213 H NT-Pro-B Natriuret Pep 684 H Discharge - Discharge Clinical Impression: Bilateral pneumonia Qualifiers: Pneumonia type: due to unspecified organism Lung location: lower lobe of lung Qualified Code(s): J18.9 - Pneumonia, unspecified organism Condition: Stable Disposition: HOME, SELF-CARE Additional Instructions: Maintain adequate fluid intake tylenol/ibuprofen as needed alternating every 3 hours for fever/body ache over the counter cold medication as needed for symptoms Humidified air may help Wash your hands regularly Wear a mask when coughing F/u: with your PCM in 3-5 days for a recheck Return to the ED with any fever, altered mental status/behavior, chest pain, palpitations, syncope, headache, neck pain/stiffness, shortness of breath, chest pains, wheezing, drooling, trouble swallowing/breathing, abdominal pain, n/v/d, rash, or worsening/concerning symptoms otherwise. Prescriptions: Levofloxacin [Levaquin 750 mg Tablet] 750 mg PO DAILY #4 tablet Forms: Elevated Blood Pressure Referrals: [facility] [Provider Group] - Follow up as needed
[2020-01-13 05:13] LABS: VENOUS BLOOD BASE EXCESS -3.4 mmol/L; VENOUS BLOOD HCO3 21.8 mmol/L (20-32); VENOUS BLOOD PCO2 39.6 mmHg (35-63); VENOUS BLOOD PH 7.36 (7.30-7.42)
[2020-01-13] MEDS ORDERED: CLONIDINE HCL 0.2 MG TABLET PO ONE (05:34)
[2020-01-13 05:57] VITALS: BP 167/121
--- NOTE | 2020-01-13 11:20 | EKG REPORT ---
SEVERITY:- BORDERLINE ECG - SINUS RHYTHM PROBABLE LEFT ATRIAL ABNORMALITY : Confirmed by: Gi Harris MD 13-Jan-2020 11:19:21
== END 2020-01-13 05:57 | disposition home or self-care (01) ==
LOC: ER 02:12
DX: J18.9 Pneumonia, unspecified organism (principal); J44.0 Chronic obstructive pulmonary disease with (acute) lower respiratory infection; R05 Cough; E11.9 Type 2 diabetes mellitus without complications; F17.200 Nicotine dependence, unspecified, uncomplicated; I10 Essential (primary) hypertension
CPT/HCPCS: 93005; 94640 ×2; 99285; 96375; 96365; 36415; 82553; 82550; 85025; 80053; 84484; 82803; 83880; 71045; 93010; A9270 ×4; J2930; J3475; J7620

== ENCOUNTER 2020-01-20 13:54 | Emergency (ER) | payer OTHER, MEDICARE ==
[2020-01-20 14:35] VITALS: BP 152/113
--- NOTE | 2020-01-20 14:56 | ER Document Report ---
ED General - General Chief Complaint: Shortness Of Breath Stated Complaint: COUGH [facility] [[facility]] - Follow up as needed Notes: Patient is a 59-year-old -[place] male with a past medical history of uncontrolled hypertension, asthma/COPD who is a current everyday smoker who was recently seen here and diagnosed with a bilateral pneumonia who returns today with a chief complaint of shortness of breath. States he smoked a cigarette yesterday and feels this exacerbated the shortness of breath. He states that he is here for a refill of his albuterol rescue inhaler. He states he is tried to go to [facility] and they wanted to "give me the run around". He states he does not want to be worked up or evaluated for anything. States that he only wants a refill for his albuterol inhaler and if he cannot get that he will leave. He denies cough or fever. Denies recent travel or known sick contacts. Denies chest pain. States he took the medicines he was given last time during his visit here for pneumonia. States he has been dealing with high blood pressure issue for 20 years. States "if my heart fails Oh Well". TRAVEL OUTSIDE OF THE [place] IN LAST 30 DAYS: No - Related Data Allergies/Adverse Reactions: No Known Allergies Allergy (Verified 01/20/20 14:10) Past Medical History - Social History Smoking Status: Current Every Day Smoker Family History: Reviewed & Not Pertinent Patient has suicidal ideation: No Patient has homicidal ideation: No - Past Medical History Cardiac Medical History: Reports: Hx Hypertension Endocrine Medical History: Reports: Hx Diabetes Mellitus Type 2 Renal/ Medical History: Denies: Hx Peritoneal Dialysis Musculoskeletal Medical History: Reports Hx Arthritis Past Surgical History: Reports: Hx Appendectomy Review of Systems - Review of Systems Respiratory: Short of breath -: Yes All other systems reviewed and negative Physical Exam - Vital signs Vitals: Temp 98.5 F 01/20/20 13:55 - General General appearance: Appears well, Alert In distress: None - Respiratory Respiratory status: No respiratory distress Chest status: Nontender Breath sounds: Normal Chest palpation: Normal - Cardiovascular Rhythm: Regular Heart sounds: Normal auscultation - Extremities General upper extremity: Normal inspection, Nontender, Normal color, Normal ROM, Normal temperature General lower extremity: Normal inspection, Nontender, Normal color, Normal ROM, Normal temperature, Normal weight bearing. No: Kelsy's sign - Neurological Neuro grossly intact: Yes Cognition: Normal Orientation: AAOx4 [place] Coma Scale Eye Opening: Spontaneous [place] Coma Scale Verbal: Oriented [place] Coma Scale Motor: Obeys Commands [place] Coma Scale Total: 15 Speech: Normal - Psychological Associated symptoms: Agitated, Angry - Skin Skin Temperature: Warm Skin Moisture: Dry Skin Color: Normal Course - Re-evaluation Re-evalutation: 01/20/20 14:56 Patient went for x-ray but refuses work-up otherwise. He states he does not wish to be worked up for shortness of breath. States he has been dealing with elevated blood pressure and problems like this for 20 years. States he is waiting for primary doctor from the [facility]. States he has been multiple places trying to get a refill of his albuterol inhaler and has been getting the "run around". He vehemently refuses any medical work-up or care here other than a prescription refill for his albuterol inhaler we discussed the risks of this at length including but not limited to sudden or permanent neurological disability. The patient is aware of the risks but has chosen to leave AGAINST MEDICAL ADVICE. We will go ahead and prescribe his inhaler for him. He is of sound mind and mental capacity to make informed decision. He is aware that he is free to return here at any time to continue his care. I advised he follow-up as soon as possible with any other provider for continued care management and reevaluation. Advised to return here or any ER immediately with any new, per sistent or worsening symptoms. He verbalized understood and agreed. - Vital Signs Vital signs: Temp Pulse Resp BP Pulse Ox 98.5 F 152/113 H 96 01/20/20 13:55 01/20/20 14:01 01/20/20 14:02 Discharge - Discharge Clinical Impression: Shortness of breath, Medication refill Condition: Stable Disposition: AGAINST MEDICAL ADVICE Instructions: Dyspnea, Nonspecific ([facility]) Additional Instructions: You have chosen to leave today AGAINST MEDICAL ADVICE. Please see your doctor as soon as possible for continued care management. You are free to return here or any ER immediately with any new, persistent or worsening symptoms. Prescriptions: Albuterol Sulfate [Proair Respiclick] 90 mcg IH Q4 #1 [email or web address] [facility]errals: [facility] [Primary [facility]] - Follow up as needed
--- NOTE | 2020-01-20 15:19 | RADIOLOGY REPORT (SQ) ---
EXAM DESCRIPTION: CHEST 2 VIEWS COMPLETED DATE/TIME: 01/20/2020 2:41 pm REASON FOR STUDY: cough COMPARISON: 01/13/2020 EXAM PARAMETERS: NUMBER OF VIEWS: two views TECHNIQUE: Digital Frontal and Lateral radiographic views of the chest acquired. RADIATION DOSE: NA LIMITATIONS: none FINDINGS: LUNGS AND PLEURA: Chronic interstitial changes. Improved aeration of the lung bases. Pos sible calcified left hilar nodes. MEDIASTINUM AND HILAR STRUCTURES: No masses or contour abnormalities. HEART AND VASCULAR STRUCTURES: Heart normal size. No evidence for failure. BONES: No acute findings. HARDWARE: None in the chest. OTHER: No other significant finding. IMPRESSION: Chronic lung changes. There is overall improvement in the appearance of the chest. TECHNICAL DOCUMENTATION: JOB ID: [id number] 2010 [employer]- All Rights Reserved Reading location - IP/workstation name: [email or web address]
== END 2020-01-20 14:56 | disposition left against medical advice (07) ==
LOC: ER 13:54
DX: J44.9 Chronic obstructive pulmonary disease, unspecified (principal); Z76.0 Encounter for issue of repeat prescription; F17.210 Nicotine dependence, cigarettes, uncomplicated; R06.02 Shortness of breath; I10 Essential (primary) hypertension; E11.9 Type 2 diabetes mellitus without complications; Z53.29 Procedure and treatment not carried out because of patient's decision for other reasons
CPT/HCPCS: 71046; 99284

== ENCOUNTER 2020-01-31 01:32 | Emergency (ER) | payer OTHER, MEDICARE ==
[2020-01-31 01:41] VITALS: BP 187/105
[2020-01-31] MEDS ORDERED: MAG HYDROX/AL HYDROX/SIMETH SUSP 30 ML UDCUP PO ONE (02:24)
[2020-01-31] MEDS ORDERED: LIDOCAINE 2% VISCOUS SOLN 15 ML UDCUP PO ONE (02:24)
[2020-01-31] MEDS ORDERED: METOCLOPRAMIDE HCL ORAL SOLN 10 MG/10 ML UDCUP PO ONE (02:24)
--- NOTE | 2020-01-31 02:25 | ER Document Report ---
HPI - HPI Time Seen by Provider: 01/31/20 02:25 Pain Level: 1 Notes: Mr. Jenkins is a 60-year-old male presenting to the emergency department with a foreign body sensation in his throat. Patient reports he had a [employer] sub-sandwich earlier this evening and states that he feels like something may have scratched his throat or something is stuck in his throat. He reports he is able to swallow without difficulty. He states that he has not had this issue in the past although upon reviewing his records he has been here for similar situation in the past. He also reports to the triage nurse that he uses "all drugs". - CONSTITUTIONAL Constitutional: DENIES: Fever, Chills - EENT EENT: DENIES: Sore Throat, Ear Pain, Eye problems - NEURO Neurology: DENIES: Headache, Weakness, Vision blurred, Dizzinesss / Vertigo - CARDIOVASCULAR Cardiovascular: DENIES: Chest pain - RESPIRATORY Respiratory: DENIES: Trouble Breathing, Coughing - GASTROINTESTINAL Gastrointestinal: DENIES: Abdominal Pain, Black / Bloody Stools - URINARY Urinary: DENIES: Dysuria, Urgency, Frequency - REPRODUCTIVE Reproductive: DENIES: : - MUSCULOSKELETAL Musculoskeletal: DENIES: Extremity pain Past Medical History - General Information source: Patient - Social History Smoking Status: Current Every Day Smoker Chew tobacco use (# tins/day): No Frequency of alcohol use: Occasional Drug Abuse: Cocaine, Marijuana, Other Family History: Reviewed & Not Pertinent Patient has suicidal ideation: No Patient has homicidal ideation: No - Past Medical History Cardiac Medical History: Reports: Hx Hypertension Pulmonary Medical History: Reports: Hx COPD Endocrine Medical History: Reports: Hx Diabetes Mellitus Type 2 Renal/ Medical History: Denies: Hx Peritoneal Dialysis Musculoskeletal Medical History: Reports Hx Arthritis Past Surgical History: Reports: Hx Appendectomy Vertical Provider Document - CONSTITUTIONAL Notes: PHYSICAL EXAMINATION: GENERAL: Well-appearing, well-nourished and in no acute distress. HEAD: Atraumatic, normocephalic. EYES: Pupils equal round and reactive to light, extraocular movements intact, sclera anicteric, conjunctiva are normal. ENT: Nares patent, oropharynx clear without exudates. Moist mucous membranes. NECK: Normal range of motion, supple without lymphadenopathy LUNGS: Breath sounds clear to auscultation bilaterally and equal. No wheezes rales or rhonchi. HEART: Regular rate and rhythm without murmurs ABDOMEN: Soft, nontender, nondistended abdomen. No guarding, no rebound. No masses appreciated. Musculoskeletal: Normal range of motion, no pitting or edema. No cyanosis. NEUROLOGICAL: Cranial nerves grossly intact. Normal speech, normal gait. Normal sensory, motor exams PSYCH: Normal mood, normal affect. SKIN: Warm, Dry, normal turgor, no rashes or lesions noted. - INFECTION CONTROL TRAVEL OUTSIDE OF THE [place] IN LAST 30 DAYS: No Course - Re-evaluation Re-evalutation: Patient appears well, nontoxic, he is mildly tachycardic although upon recheck his heart rate is in the 90s. Patient is alert, swallowing his own secretions, speaking in full complete sentences and maintaining his airway without difficulty. Patient was given a GI cocktail by the triage nurse. He reports that this has really not changed his symptoms. Patient continues to speak in full and complete sentences as well as without difficulty. Patient will be discharged home at this time with plans to follow-up with his primary care provider for consideration of a referral to gastroenterology if symptoms persist. - Vital Signs Vital signs: Temp Pulse Resp BP Pulse Ox 97.6 F 107 H 20 187/105 H 96 01/31/20 01:36 01/31/20 01:36 01/31/20 01:36 01/31/20 01:36 01/31/20 01:36 Discharge - Discharge Clinical Impression: Esophagitis Condition: Stable Disposition: HOME, SELF-CARE Additional Instructions: Esophagitis Your evaluation has resulted in a diagnosis of esophagitis. This is an inflammation of the lower esophagus due. It causes symptoms such as chest pain, heartburn, or food "sticking." This is common in persons with a hiatal hernia. Certain foods, alcohol, drugs, and aspirin contribute to esophagitis. Treatment depends on the severity. Usually, antacids or acid-suppressing medicines are used. The physician will often prescribe membrane-protective drugs (such as Carafate). Some patients benefit from medication that tightens the valve at the top of the stomach (such as Reglan). Avoid alcohol, aspirin, caffeine, tobacco, and foods that cause heartburn (such as chocolate). Elevate the head of your bed about four inches. Call the doctor if you develop severe chest pain, inability to swallow fluids, fever, or worsening symptoms. Please take medication as prescribed. Please stop eating or drinking any substances which may irritate your throat such as anything containing caffeine, spicy foods, anything inhaled such as cigarettes or any illicit substances. Try only and taking clear liquids for the next 1 to 2 days and then start off with soft foods such as applesauce, rice, etc. Prescriptions: Sucralfate [Carafate 1 gm Tablet] 1 gm PO ACHS #60 tablet Mag Hydrox/Aluminum Hyd/Simeth [Maalox Maximum Strength Susp] 10 ml PO TID #1 bottle [facility]errals: [facility] [[facility]] - Follow up as needed
== END 2020-01-31 03:12 | disposition home or self-care (01) ==
LOC: ER 01:32
DX: K20.9 Esophagitis, unspecified (principal); R00.0 Tachycardia, unspecified; F17.200 Nicotine dependence, unspecified, uncomplicated; I10 Essential (primary) hypertension; J44.9 Chronic obstructive pulmonary disease, unspecified; E11.9 Type 2 diabetes mellitus without complications
CPT/HCPCS: 99282; J3490

== ENCOUNTER 2020-02-27 04:31 | Emergency (ER) | payer OTHER, MEDICARE ==
--- NOTE | 2020-02-27 05:18 | ER Document Report ---
Entered by NEGRA DENNISON SCRIBE 02/27/20 0505 Acting as scribe for:JASMINA OSULLIVAN IV, MD ED General - General Chief Complaint: Finger Injury Stated Complaint: RIGHT FINGER INJURY Time Seen by Provider: 02/27/20 04:56 Primary Care Provider: [facility] [Primary Care Provider] - Follow up as needed Mode of Arrival: Ambulatory Information source: Patient Notes: This 60 year old male patient presents to the ED today with complaints of a right middle finger injury that occurred x2 days ago. Patient states that he was changing the transmission in his car and the heat from the exhaust burned his finger. He reports a throbbing achy pain and increased swelling since onset. TRAVEL OUTSIDE OF THE [place] IN LAST 30 DAYS: No - Related Data Allergies/Adverse Reactions: No Known Allergies Allergy (Verified 01/20/20 14:10) Past Medical History - Social History Smoking Status: Current Every Day Smoker Cigarette use (# per day): Yes Chew tobacco use (# tins/day): No Smoking Education Provided: No Frequency of alcohol use: Social Drug Abuse: Cocaine, Marijuana Family History: Reviewed & Not Pertinent Patient has suicidal ideation: No Patient has homicidal ideation: No - Past Medical History Cardiac Medical History: Reports: Hx Hypertension Pulmonary Medical History: Reports: Hx COPD Endocrine Medical History: Reports: Hx Diabetes Mellitus Type 2 Musculoskeletal Medical History: Reports Hx Arthritis Past Surgical History: Reports: Hx Appendectomy Review of Systems - Review of Systems Constitutional: No symptoms reported EENT: No symptoms reported Cardiovascular: No symptoms reported Respiratory: No symptoms reported Gastrointestinal: No symptoms reported Genitourinary: No symptoms reported Male Genitourinary: No symptoms reported Musculoskeletal: See HPI, Other - Right middle finger pain Skin: See HPI, Other - Swelling to right middle finger Hematologic/Lymphatic: No symptoms reported Neurological/Psychological: No symptoms reported -: Yes All other systems reviewed and negative Physical Exam - Vital signs Vitals: Temp 97.7 F 02/27/20 04:34 - General General appearance: Alert In distress: None - HEENT Head: Normocephalic, Atraumatic Eyes: Normal Pupils: PERRL - Respiratory Respiratory status: No respiratory distress Chest status: Nontender Breath sounds: Normal Chest palpation: Normal - Cardiovascular Rhythm: Regular Heart sounds: Normal auscultation Murmur: No Friction rub: No Gallop: None auscultated - Abdominal Inspection: Normal Distension: No distension Bowel sounds: Normal Tenderness: Nontender - Abdomen soft Organomegaly: No organomegaly - Back Back: Normal, Nontender - Extremities General lower extremity: Normal inspection Hand: Tender - Tenderness to palpation of right middle finger, Swelling - Swelling at proximal interphalangeal joint of right middle finger., Other - Cap refill < 2 seconds. Full ROM secondary to pain. No crepitus or erythema appreciated.. No: Deformity - Neurological Neuro grossly intact: Yes Orientation: AAOx4 - Psychological Associated symptoms: Normal affect, Normal mood - Skin Skin Temperature: Warm Skin Moisture: Dry Skin Color: Normal Course - Re-evaluation Re-evalutation: 02/27/20 05:41 Results of ED MSE discussed with patient. All questions were answered. Emergency signs and symptoms, reasons to return to the emergency department discussed with patient. - Vital Signs Vital signs: Temp Pulse Resp BP Pulse Ox 97.7 F 112 H 20 158/98 H 94 02/27/20 04:37 02/27/20 04:37 02/27/20 04:37 02/27/20 04:37 02/27/20 04:37 Discharge - Discharge Clinical Impression: Injury of right middle finger Qualifiers: Encounter type: initial encounter Qualified Code(s): S69.91XA - Unspecified injury of right wrist, hand and finger(s), initial encounter Condition: Good Disposition: HOME, SELF-CARE Additional Instructions: Return to the Emergency Department without delay if any worse. Use Motrin for pain and ice packs for swelling. HOME CARE INSTRUCTIONS & INFORMATION: Thank you for choosing us for your medical needs. We hope you're satisfied with the care you received. After you leave, you must properly care for your problem and, at the same time, observe its progress. Any condition can change. Some illnesses can change rapidly over hours or days. If your condition worsens, return to the Emergency Department or see your physician promptly. ABOUT YOUR X-RAYS AND EKG'S: If you had an EKG or X-rays taken, they have been read by the Emergency Physician. The X-rays and EKG's will also be read by a Radiologist or Bartender within 24 hours. If discrepancies are noted, you will be notified by telephone. Please be certain the ED has a correct telephone number & address where you can be reached. Also, realize that some fractures or abnormalities do not show up on initial X-rays. If your symptoms continue, see your physician. ABOUT YOUR LABORATORY TEST: If you had laboratory tests, the results have been reviewed by the Emergency Physician. Some test results (for example cultures) may not be available for several days. You will be contacted if any test result shows you need additional treatment. Please be certain the ED has a correct telephone number and address where you can be reached. ABOUT YOUR MEDICATIONS: You will receive instructions on how to take your medicine on the prescription label you receive. Additional information may be provided by the Pharmacy. If you have questions afterwards, call the ED for clarification or further instructions. Some prescribed medications may cause drowsiness. Do not perform tasks such as driving a car or operating machinery without consulting your Pharmacist. If you feel you need a refill of pain medication, your condition will need re-evaluation. Please do not call for a refill of any medication. ABOUT YOUR SIGNATURE: Signature of this document acknowledges to followin. Understanding that you received emergency treatment and that you may be released before al medical problems are known or treated. Please be certain the ED has a correct phone number & address where you can be reached. 2. Acknowledgement that you will arrange for follow-up care as recommended. 3. Authorization for the Emergency Physician to provide information to your follow-up Physician in order to maximize your care. AT ANY TIME, IF YOUR SYMPTOMS CHANGE SIGNIFICANTLY OR WORSEN OR YOU DEVELOP NEW SYMPTOMS, RETURN TO THE EMERGENCY DEPARTMENT IMMEDIATELY FOR RE-EVALUATION. OUR GOAL IS TO PROVIDE EXCELLENT MEDICAL CARE! WE HOPE THAT WE HAVE MET YOUR EXPECTATIONS DURING YOUR EMERGENCY DEPARTMENT VISIT AND THAT YOU FEEL YOU HAVE RECEIVED EXCELLENT CARE! Referrals: [facility] [Primary [facility]] - Follow up as needed I personally performed the services described in the documentation, reviewed and edited the documentation which was dictated to the scribe in my presence, and it accurately records my words and actions.
[2020-02-27] MEDS ORDERED: IBUPROFEN 600 MG TABLET PO ONE (05:44)
--- NOTE | 2020-02-27 05:50 | RADIOLOGY REPORT (SQ) ---
EXAM DESCRIPTION: XR FINGERS COMPLETED DATE/TME: 02/27/2020 04:59 CLINICAL HISTORY: 60 years, Male, right middle finger pain COMPARISON: None. NUMBER OF VIEWS: 3 TECHNIQUE: 3 views of the right third digit LIMITATIONS: None. FINDINGS: Soft tissue swelling near the DIP joint of the third digit. Negative for an acute fracture or dislocation. No radiopaque foreign body. IMPRESSION: Distal soft tissue swelling. No acute fracture copyright 2010 [employer]- All Rights Reserved
[2020-02-27 05:51] VITALS: BP 138/93
== END 2020-02-27 05:51 | disposition home or self-care (01) ==
LOC: ER 04:31
DX: S69.91XA Unspecified injury of right wrist, hand and finger(s), initial encounter (principal); X58.XXXA Exposure to other specified factors, initial encounter; F17.210 Nicotine dependence, cigarettes, uncomplicated
CPT/HCPCS: 99283

== ENCOUNTER 2020-02-28 08:08 | Emergency (ER) | payer OTHER, MEDICARE ==
[2020-02-28] MEDS ORDERED: NORMAL SALINE 1000 ML 1,000 ML IV ONE (08:23)
[2020-02-28] MEDS ORDERED: LOPERAMIDE HCL 2 MG CAPSULE PO ONE (08:23)
--- NOTE | 2020-02-28 08:25 | ER Document Report ---
ED GI/ - General Chief Complaint: Abdominal Pain Stated Complaint: ABDOMINAL PAIN Time Seen by Provider: 02/28/20 08:17 Primary Care Provider: VENITA BUTCHER [Primary Care Provider] - Follow up as needed Mode of Arrival: Ambulatory Information source: Patient Notes: Patient reports eating bad food yesterday and getting food poisoning. Patient complains of diarrhea that started yesterday. Patient states he had diarrhea about 6 episodes. Patient denies any fever nausea or vomiting. Patient does complain of some lower abdominal cramping. TRAVEL OUTSIDE OF THE [place] IN LAST 30 DAYS: No - HPI Patient complains to provider of: Abdominal pain, Diarrhea. No: Vomiting Onset: Yesterday Timing/Duration: Persistent Quality of pain: Cramping Pain Level: 5 Location: Pelvis Associated symptoms: Diarrhea. denies: Blood in stool, Nausea, Urinary hesitancy, Urinary frequency, Urinary retention, Urinary urgency, Vomiting Exacerbated by: Denies Relieved by: Denies Similar symptoms previously: No Recently seen / treated by doctor: Yes - Related Data Allergies/Adverse Reactions: No Known Allergies Allergy (Verified 02/28/20 08:23) Past Medical History - General Information source: Patient - Social History Smoking Status: Current Every Day Smoker Frequency of alcohol use: Occasional Drug Abuse: Marijuana Occupation: None Family History: Reviewed & Not Pertinent - Past Medical History Cardiac Medical History: Reports: Hx Hypertension Pulmonary Medical History: Reports: Hx COPD Endocrine Medical History: Reports: Hx Diabetes Mellitus Type 2 Renal/ Medical History: Denies: Hx Peritoneal Dialysis Musculoskeletal Medical History: Reports Hx Arthritis Psychiatric Medical History: Reports: Hx Depression Past Surgical History: Reports: Hx Appendectomy Review of Systems - Review of Systems Constitutional: No symptoms reported. denies: Fever, Recent illness EENT: No symptoms reported Cardiovascular: No symptoms reported. denies: Chest pain Respiratory: No symptoms reported. denies: Cough Gastrointestinal: Abdominal pain, Diarrhea. denies: Nausea, Vomiting Genitourinary: No symptoms reported. denies: Dysuria, Flank pain Male Genitourinary: No symptoms reported Musculoskeletal: No symptoms reported Skin: No symptoms reported Hematologic/Lymphatic: No symptoms reported Neurological/Psychological: No symptoms reported Physical Exam - Vital signs Vitals: Temp Pulse Resp BP Pulse Ox 97.5 F 81 20 158/98 H 96 02/28/20 08:11 02/28/20 08:11 02/28/20 08:11 02/28/20 08:11 02/28/20 08:11 - General General appearance: Appears well, Alert In distress: None - HEENT Head: Normocephalic, Atraumatic Eyes: Normal Conjunctiva: Normal Nasal: Normal Mouth/Lips: Normal Mucous membranes: Normal Neck: Normal, Supple. No: Lymphadenopathy - Respiratory Respiratory status: No respiratory distress Chest status: Nontender Breath sounds: Normal. No: Rales, Rhonchi, Stridor, Wheezing Chest palpation: Normal - Cardiovascular Rhythm: Regular Heart sounds: S1 appreciated, S2 appreciated - Abdominal Inspection: Normal Distension: No distension Bowel sounds: Normal Tenderness: Tender - Lower pelvic Organomegaly: No organomegaly - Back Back: Normal, Nontender. No: CVA tenderness - Neurological Neuro grossly intact: Yes Cognition: Normal Orientation: Disoriented to events Kortney Coma Scale Verbal: Oriented Kortney Coma Scale Motor: Obeys Commands - Psychological Associated symptoms: Normal affect, Normal mood - Skin Skin Temperature: Warm Skin Moisture: Dry Skin Color: Normal Course - Re-evaluation Re-evalutation: 02/28/20 09:30 Patient feeling better, no additional diarrhea episodes while here. Patient is requesting discharge at this time. - Vital Signs Vital signs: Temp Pulse Resp BP Pulse Ox 98.0 F 88 16 160/106 H 100 02/28/20 09:35 02/28/20 09:35 02/28/20 09:35 02/28/20 09:35 02/28/20 09:35 - Laboratory Result Diagrams: 02/28/20 08:34 02/28/20 08:34 Laboratory results interpreted by me: 02/28/20 02/28/20 08:34 08:34 RDW 14.4 H Sodium 136.1 L Potassium 3.5 L Glucose 159 H Labs- Entire Visit 02/28/20 02/28/20 08:34 08:34 WBC 5.8 RBC 4.60 Hgb 14.3 Hct 41.7 MCV 91 MCH 31.1 MCHC 34.3 RDW 14.4 H Plt Count 201 Lymph % (Auto) 23.7 [place] % (Auto) 6.0 Eos % (Auto) 1.2 Baso % (Auto) 0.7 Absolute Neuts (auto) 3.9 Absolute Lymphs (auto) 1.4 Absolute Monos (auto) 0.3 Absolute Eos (auto) 0.1 Absolute Basos (auto) 0.0 Seg Neutrophils % 68.4 Sodium 136.1 L Potassium 3.5 L Chloride 102 Carbon Dioxide 28 Anion Gap 6 BUN 11 Creatinine 0.92 Est GFR ( Amer) > 60 Est GFR (MDRD) Non-Af > 60 Glucose 159 H Calcium 8.8 Total Bilirubin 1.0 Direct Bilirubin 0.0 Neonat Total Bilirubin Not Reportable Neonat Direct Bilirubin Not Reportable Neonat Indirect Bili Not Reportable AST 24 ALT 17 Alkaline Phosphatase 104 Total Protein 6.5 Albumin 3.9 Discharge - Discharge Clinical Impression: Abdominal cramping Diarrhea Qualifiers: Diarrhea type: unspecified type Qualified Code(s): R19.7 - Diarrhea, unspecified Condition: Stable Disposition: HOME, SELF-CARE Additional Instructions: Return immediately for any new or worsening symptoms Followup with your primary care provider, call tomorrow to make a followup appointment DIARRHEA, NON-SPECIFIC: Diarrhea means frequent, watery stools. There are many causes. Any problem that keeps the intestinal tract from absorbing water from the stool can lead to diarrhea. A sudden new diarrhea problem is usually caused by a virus, food sensitivity, toxic bacteria, or drugs. In this case, we expect the problem to go away soon. Testing is done only if you seem seriously ill from the diarrhea. If you have chronic diarrhea, or diarrhea that keeps coming back, we need to find out why. Chronic diarrhea can be due to inflammation of the bowels such as Crohn's disease or ulcerative colitis, food sensitivity such as intolerance to lactose or wheat protein, irritable bowel syndrome, and other problems. If your diarrhea is a significant problem but it's not clear why you have it, we'll refer you to a specialist for further testing. During an episode of diarrhea, drink small amounts (two to six ounces) of clear liquids (soft drinks, sport drinks, herb teas, broth, etc). Take fluids frequently to prevent dehydration. It's usually not a problem to take mild anti- diarrhea medication such as Kaopectate or Pepto-Bismol. As the diarrhea eases, advance to small amounts of bland food (mashed potato, toast) for 24 hours. Call the physician if blood appears in your vomit or stool, if vomiting lasts longer than 24 hours, if the abdominal pain worsens or becomes localized to one area, if you develop high fever, or if you become lightheaded and weak. INTRAVENOUS (I V) FLUIDS: As part of your care today, you received intravenous (IV) fluids. IV fluids are administered to patients who are dehydrated or to those who have certain chemical (electrolyte) abnormalities that need correcting. FOLLOW-UP CARE: If you have been referred to a physician for follow-up care, call the physicians office for an appointment as you were instructed or within the next two days. If you experience worsening or a significant change in your symptoms, notify the physician immediately or return to the Emergency Department at any time for re-evaluation. Referrals: [facility] [Primary [facility]] - Follow up as needed
[2020-02-28 08:52] LABS: ABSOLUTE EOSINOPHILS # (AUTO) 0.1 10^3/uL (0.0-0.6); ABSOLUTE LYMPHOCYTES (AUTO) 1.4 10^3/uL (0.5-4.7); ABSOLUTE MONOCYTES (AUTO) 0.3 10^3/uL (0.1-1.4); ABSOLUTE NEUT (AUTO) 3.9 10^3/uL (1.7-8.2); BASOPHILS % (AUTO) 0.7 % (0-2); EOSINOPHILS % (AUTO) 1.2 % (0-6); HEMATOCRIT 41.7 % (37.9-51.0); HEMOGLOBIN 14.3 g/dL (13.5-17.0); LYMPHOCYTES % (AUTO) 23.7 % (13-45); MEAN CORPUSCULAR HEMOGLOBIN 31.1 pg (27.0-33.4); MEAN CORPUSCULAR HGB CONC 34.3 g/dL (32.0-36.0); MEAN CORPUSCULAR VOLUME 91 fl (80-97); PLATELET COUNT 201 10^3/uL (150-450); RED CELL DISTRIBUTION WIDTH 14.4 % (11.5-14.0); SEGMENTED NEUTROPHILS % (AUTO) 68.4 % (42-78); TOTAL CELLS COUNTED % (AUTO) 100 %; WHITE BLOOD COUNT 5.8 10^3/uL (4.0-10.5)
[2020-02-28 09:06] LABS: ALBUMIN 3.9 g/dL (3.5-5.0); ALKALINE PHOSPHATASE 104 U/L (38-126); ASPARTATE AMINO TRANSFERASE 24 U/L (17-59); BLOOD UREA NITROGEN 11 mg/dL (7-20); CALCIUM 8.8 mg/dL (8.4-10.2); CARBON DIOXIDE 28 mmol/L (22-30); GLUCOSE 159 mg/dL (75-110); POTASSIUM 3.5 mmol/L (3.6-5.0); TOTAL PROTEIN 6.5 g/dL (6.3-8.2)
[2020-02-28 09:08] LABS: ANION GAP 6 (5-19); CHLORIDE 102 mmol/L (98-107)
[2020-02-28 09:37] VITALS: BP 160/106
== END 2020-02-28 09:37 | disposition home or self-care (01) ==
LOC: ER 08:08
DX: R19.7 Diarrhea, unspecified (principal); R10.30 Lower abdominal pain, unspecified; I10 Essential (primary) hypertension; J44.9 Chronic obstructive pulmonary disease, unspecified; E11.9 Type 2 diabetes mellitus without complications; F17.200 Nicotine dependence, unspecified, uncomplicated; F12.10 Cannabis abuse, uncomplicated
CPT/HCPCS: 99284; 96360; 36415; 85025; 80053; J7030

== ENCOUNTER 2020-02-29 06:48 | Emergency (ER) | payer OTHER, MEDICARE ==
[2020-02-29] MEDS: LIDOCAINE 1% INJ-PF (10 MG/ML) 30 ML SDV INJ ONE ×2 (08:11→09:16)
[2020-02-29] MEDS ORDERED: IBUPROFEN 800 MG TABLET PO ONE (09:02)
[2020-02-29] MEDS ORDERED: AMOXICILLIN TR/POT CLAVULANATE 875-125 MG TAB PO ONE (09:02)
[2020-02-29] MEDS ORDERED: BACITRACIN ZINC OINTMENT 15 GM TP ONE (09:03)
--- NOTE | 2020-02-29 09:12 | ER Document Report ---
Entered by MCKENZIE HERR SCRIBE 02/29/20 0755 Acting as scribe for:MONCHO GIBSON MD ED General - General Chief Complaint: Finger Injury Stated Complaint: RIGHT FINGER PAIN Primary Care Provider: [facility] [Primary [facility]] - Follow up as needed Information source: Patient Notes: This 60-year-old male presents to the emergency department complaining of right middle finger pain that began four days ago. Patient says "there is fluid in this finger" and "I'm stressing". Patient describes the pain as a pressure that radiates into his hand. Patient explains that he was working on his car four days ago with no gloves on and does not reports any injury to the finger. Patient said that he has used ice the past couple of days with no relief. Patient denies fever and cough. TRAVEL OUTSIDE OF THE [place] IN LAST 30 DAYS: No - Related Data Allergies/Adverse Reactions: No Known Allergies Allergy (Verified 02/29/20 06:53) Past Medical History - General Information source: Patient - Social History Smoking Status: Current Every Day Smoker Cigarette use (# per day): Yes Chew tobacco use (# tins/day): No Frequency of alcohol use: daily Drug Abuse: None Family History: Reviewed & Not Pertinent Patient has homicidal ideation: No - Past Medical History Cardiac Medical History: Reports: Hx Hypertension Pulmonary Medical History: Reports: Hx COPD Endocrine Medical History: Reports: Hx Diabetes Mellitus Type 2 Musculoskeletal Medical History: Reports Hx Arthritis Psychiatric Medical History: Reports: Hx Depression Past Surgical History: Reports: Hx Appendectomy Review of Systems - Review of Systems Constitutional: See HPI. denies: Fever EENT: No symptoms reported Cardiovascular: No symptoms reported Respiratory: See HPI. denies: Cough Gastrointestinal: No symptoms reported Genitourinary: No symptoms reported Male Genitourinary: No symptoms reported Musculoskeletal: See HPI, Other - Right middle finger pain Skin: No symptoms reported Hematologic/Lymphatic: No symptoms reported Neurological/Psychological: No symptoms reported -: Yes All other systems reviewed and negative Physical Exam - Vital signs Vitals: Temp Pulse Resp BP Pulse Ox 97.3 F 101 H 20 164/104 H 96 02/29/20 06:53 02/29/20 06:53 02/29/20 06:53 02/29/20 06:53 02/29/20 06:53 - Notes Notes: Physical Exam: General: Alert, appears well. HEENT: Normocephalic. Atraumatic. PERRL. Extraocular movements intact. Oropharynx clear. Neck: Supple. Non-tender. Respiratory: No respiratory distress. Clear and equal breath sounds bilaterally. Cardiovascular: Regular rate and rhythm. Abdominal: Normal Inspection. Non-tender. No distension. Normal Bowel Sounds. Back: No gross abnormalities. Extremities: Moves all four extremities. Upper extremities: Normal ROM. Right middle finger has soft tissue swelling along the periungual and around the cuticle. No drainage or redness. Lower extremities: Normal inspection. No edema. Normal ROM. Neurological: Normal cognition. AAOx4. Normal speech. Psychological: Normal affect. Normal Mood. Skin: Warm. Dry. Normal color. Course - Re-evaluation Re-evalutation: 02/29/20 09:04 Patient resting waiting for procedure for incise and drain paronychia of the right third finger. - Vital Signs Vital signs: Temp Pulse Resp BP Pulse Ox 97.3 F 101 H 20 164/104 H 96 02/29/20 06:53 02/29/20 06:53 02/29/20 06:53 02/29/20 06:53 02/29/20 06:53 02/29/20 09:05 Hypertension noted Procedures - Incision and Drainage Right 3rd digit Time completed: 09:00 Type: Simple Anesthetic type: 1% Lidocaine Blade size: 11 I&D procedure: Chlorprep applied Incision Method: Incision made by scalpel Notes: 02/29/20 09:06 2 mL 02/29/20 09:07 Blood and yellow exudate draining from incision site that was made a in the periungual area on the ulnar side of the distal third finger. Expressed blood and exudate. No foreign body seen. Discharge - Discharge Clinical Impression: Paronychia of finger Disposition: HOME, SELF-CARE Additional Instructions: Paronychia You have an infection between the nail and the surrounding skin, called a paronychia. The germs infect the area after a minor skin injury, such as a hangnail. This infection is treated by releasing the pus. This is usually done by the skin from the nail. If the infection has spread underneath the nail, partial removal of the nail may be necessary. Hot-soak the area three or four times daily. Antibiotics are often given, but are not always necessary. Healing takes about a week. If pain or swelling becomes severe or if you develop fever or chills, call the doctor or return for re-examination. Prescriptions: Amoxicillin/Potassium Clav [Augmentin 875-125 Tablet] 1 tab PO BID #20 tab Ibuprofen [Motrin 800 mg Tablet] 800 mg PO Q8H PRN #20 tab PRN Reason: pain Referrals: [facility] [Primary [facility]] - Follow up as needed I personally performed the services described in the documentation, reviewed and edited the documentation which was dictated to the scribe in my presence, and it accurately records my words and actions.
[2020-02-29 09:31] VITALS: BP 166/104
== END 2020-02-29 09:35 | disposition home or self-care (01) ==
LOC: ER 06:48
DX: L03.011 Cellulitis of right finger (principal); F17.210 Nicotine dependence, cigarettes, uncomplicated; I10 Essential (primary) hypertension; J44.9 Chronic obstructive pulmonary disease, unspecified; E11.9 Type 2 diabetes mellitus without complications
CPT/HCPCS: 99283; 87070; 87205; 87077; 10060; J3490 ×2

== ENCOUNTER 2020-03-11 02:18 | Emergency (ER) | payer OTHER, MEDICARE ==
--- NOTE | 2020-03-11 03:01 | ER Document Report ---
ED Extremity Problem, Lower - General Chief Complaint: Swelling of Lower Extremity Stated Complaint: SWELLING IN LEGS Time Seen by Provider: 03/11/20 02:27 Primary Care Provider: GUADALUPE,VENITA [Primary Care Provider] - Follow up as needed Notes: This 60-year-old man presents to the emergency department with a complaint of swelling in his lower extremities bilaterally. States that the swelling occurred tonight. He was outside earlier in the evening, he denies injury or exposure. He denies a history of chest pain shortness of breath, or kidney problems. TRAVEL OUTSIDE OF THE [place] IN LAST 30 DAYS: No - Related Data Allergies/Adverse Reactions: amoxicillin Adverse Reaction (Verified 03/11/20 03:24) GI upset Past Medical History - Social History Smoking Status: Unknown if Ever Smoked Family History: Reviewed & Not Pertinent - Past Medical History Cardiac Medical History: Reports: Hx Hypertension Pulmonary Medical History: Reports: Hx COPD Endocrine Medical History: Reports: Hx Diabetes Mellitus Type 2 Renal/ Medical History: Denies: Hx Peritoneal Dialysis Musculoskeletal Medical History: Reports Hx Arthritis Psychiatric Medical History: Reports: Hx Depression Past Surgical History: Reports: Hx Appendectomy Review of Systems - Review of Systems Notes: Constitutional: Negative for fever. HENT: Negative for sore throat. Eyes: Negative for visual changes. Cardiovascular: Negative for chest pain. Respiratory: Negative for shortness of breath. Gastrointestinal: Negative for abdominal pain, vomiting or diarrhea. Genitourinary: Negative for dysuria. Musculoskeletal: See HPI Skin: Negative for rash. Neurological: Negative for headaches, weakness or numbness. 10 point ROS negative except as marked above and in HPI. Physical Exam - Vital signs Vitals: Temp Pulse Resp BP Pulse Ox 98.2 F 96 20 148/104 H 95 03/11/20 03:00 03/11/20 03:00 03/11/20 03:00 03/11/20 03:00 03/11/20 03:00 - Notes Notes: PHYSICAL EXAMINATION: Physical Exam: General: Well-nourished well-developed in no acute distress HEENT: NC/AT, pupils equal round and reactive to light, MM moist,nares clear, oropharynx clear, airway patent Neck: supple, no adenopathy, no masses. Good range of motion Lungs: clear, no wheezing, no rales no rhonchi CVS: Regular rate and rhythm no murmur gallop or rub Abdomen: Soft, active, nontender, no masses, no hepatosplenomegaly Ext: 2+ edema LE bilaterally Neuro: Alert and responsive, moving all 4 extremities on command, cranial nerves intact, no focal findings Skin: Intact no open lesions, no rash PSYCH: Normal mood, normal affect. Course - Vital Signs Vital signs: Temp Pulse Resp BP Pulse Ox 98.0 F 93 18 161/109 H 96 03/11/20 04:35 03/11/20 04:35 03/11/20 04:35 03/11/20 04:35 03/11/20 04:35 - Laboratory Result Diagrams: 03/11/20 03:50 03/11/20 03:50 Laboratory results interpreted by me: 03/11/20 03/11/20 03/11/20 03:50 03:50 03:50 RBC 4.15 L Hgb 12.8 L RDW 14.8 H Sodium 136.8 L Glucose 155 H AST 62 H ALT 85 H Alkaline Phosphatase 147 H NT-Pro-B Natriuret Pep 1660 H Total Protein 6.2 L Discharge - Discharge Clinical Impression: Bilateral lower extremity edema Condition: Good Disposition: HOME, SELF-CARE Instructions: Edema, Peripheral ([facility]) Additional Instructions: You are diagnosed with swelling in the ankles feet bilaterally today in the emergency department. A prescription for fluid pill was written Lasix 20 mg 1 tablet every day as needed. You may also elevate your feet decreasing your sodium intake and follow-up with your doctors as needed. If your symptoms are worsening or if you have other concerns you may return to the emergency department for further evaluation and treatment. HOME CARE INSTRUCTIONS & INFORMATION: Thank you for choosing us for your medical needs. We hope you're satisfied with the care you received. After you leave, you must properly care for your problem and, at the same time, observe its progress. Any condition can change. Some illnesses can change rapidly over hours or days. If your condition worsens, return to the Emergency Department or see your physician promptly. ABOUT YOUR X-RAYS AND EKG'S: If you had an EKG or X-rays taken, they have been read by the Emergency Physician. The X-rays and EKG's will also be read by a Radiologist or Embedded Processor within 24 hours. If discrepancies are noted, you will be notified by telephone. Please be certain the ED has a correct telephone number & address where you can be reached. Also, realize that some fractures or abnormalities do not show up on initial X-rays. If your symptoms continue, see your physician. ABOUT YOUR LABORATORY TEST: If you had laboratory tests, the results have been reviewed by the Emergency Physician. Some test results (for example cultures) may not be available for several days. You will be contacted if any test result shows you need additional treatment. Please be certain the ED has a correct telephone number and address where you can be reached. ABOUT YOUR MEDICATIONS: You will receive instructions on how to take your medicine on the prescription label you receive. Additional information may be provided by the Pharmacy. If you have questions afterwards, call the ED for cla rification or further instructions. Some prescribed medications may cause drowsiness. Do not perform tasks such as driving a car or operating machinery without consulting your Pharmacist. If you feel you need a refill of pain medication, your condition will need re-evaluation. Please do not call for a refill of any medication. ABOUT YOUR SIGNATURE: Signature of this document acknowledges to followin. Understanding that you received emergency treatment and that you may be released before al medical problems are known or treated. Please be certain the ED has a correct phone number & address where you can be reached. 2. Acknowledgement that you will arrange for follow-up care as recommended. 3. Authorization for the Emergency Physician to provide information to your follow-up Physician in order to maximize your care. AT ANY TIME, IF YOUR SYMPTOMS CHANGE SIGNIFICANTLY OR WORSEN OR YOU DEVELOP NEW SYMPTOMS, RETURN TO THE EMERGENCY DEPARTMENT IMMEDIATELY FOR RE-EVALUATION. OUR GOAL IS TO PROVIDE EXCELLENT MEDICAL CARE! WE HOPE THAT WE HAVE MET YOUR EXPECTATIONS DURING YOUR EMERGENCY DEPARTMENT VISIT AND THAT YOU FEEL YOU HAVE RECEIVED EXCELLENT CARE! Prescriptions: Furosemide [Lasix 20 mg Tablet] 20 mg PO QAM #10 tablet Referrals: [facility] [Primary [facility]] - Follow up as needed
[2020-03-11 03:58] LABS: ABSOLUTE MONOCYTES (AUTO) 0.3 10^3/uL (0.1-1.4); ABSOLUTE NEUT (AUTO) 2.1 10^3/uL (1.7-8.2); BASOPHILS % (AUTO) 0.8 % (0-2); EOSINOPHILS % (AUTO) 0.8 % (0-6); HEMOGLOBIN 12.8 g/dL (13.5-17.0); LYMPHOCYTES % (AUTO) 44.4 % (13-45); MEAN CORPUSCULAR HEMOGLOBIN 30.9 pg (27.0-33.4); MEAN CORPUSCULAR HGB CONC 33.8 g/dL (32.0-36.0); MEAN CORPUSCULAR VOLUME 92 fl (80-97); MONOCYTES % (AUTO) 7.1 % (3-13); PLATELET COUNT 227 10^3/uL (150-450); RED BLOOD COUNT 4.15 10^6/uL (4.35-5.55); RED CELL DISTRIBUTION WIDTH 14.8 % (11.5-14.0); SEGMENTED NEUTROPHILS % (AUTO) 46.9 % (42-78); TOTAL CELLS COUNTED % (AUTO) 100 %; WHITE BLOOD COUNT 4.5 10^3/uL (4.0-10.5)
[2020-03-11 04:12] LABS: ALBUMIN 3.8 g/dL (3.5-5.0); ALKALINE PHOSPHATASE 147 U/L (38-126); ANION GAP 10 (5-19); ASPARTATE AMINO TRANSFERASE 62 U/L (17-59); BILIRUBIN,DIRECT 0.1 mg/dL (0.0-0.4); BILIRUBIN,TOTAL 0.6 mg/dL (0.2-1.3); BLOOD UREA NITROGEN 13 mg/dL (7-20); CALCIUM 9.1 mg/dL (8.4-10.2); CARBON DIOXIDE 22 mmol/L (22-30); CHLORIDE 105 mmol/L (98-107); GLUCOSE 155 mg/dL (75-110); POTASSIUM 4.3 mmol/L (3.6-5.0); TOTAL PROTEIN 6.2 g/dL (6.3-8.2)
[2020-03-11 04:34] LABS: APPEARANCE,URINE CLEAR; BILIRUBIN,URINE NEGATIVE (NEGATIVE); COLOR,URINE YELLOW; GLUCOSE, URINE NEGATIVE (NEGATIVE); KETONES,URINE NEGATIVE (NEGATIVE); PROTEIN,URINE NEGATIVE (NEGATIVE); URINE SPECIFIC GRAVITY 1.009; UROBILINOGEN,URINE NEGATIVE mg/dL (<2.0)
[2020-03-11 04:39] VITALS: BP 161/109
== END 2020-03-11 04:39 | disposition home or self-care (01) ==
LOC: ER 02:18
DX: R60.9 Edema, unspecified (principal); I10 Essential (primary) hypertension; J44.9 Chronic obstructive pulmonary disease, unspecified; E11.9 Type 2 diabetes mellitus without complications
CPT/HCPCS: 36415; 80053; 81001; 83880; 85025; 99284

== ENCOUNTER 2020-03-13 06:48 | Inpatient (IN) | payer OTHER, MEDICARE ==
[2020-03-13] MEDS ORDERED: FUROSEMIDE INJ/PF 40 MG/4 ML SDV IV ONE (07:25)
[2020-03-13 07:35] LABS: ABSOLUTE LYMPHOCYTES (AUTO) 1.3 10^3/uL (0.5-4.7); ABSOLUTE MONOCYTES (AUTO) 0.3 10^3/uL (0.1-1.4); ABSOLUTE NEUT (AUTO) 2.4 10^3/uL (1.7-8.2); BASOPHILS % (AUTO) 0.6 % (0-2); EOSINOPHILS % (AUTO) 0.5 % (0-6); HEMATOCRIT 39.3 % (37.9-51.0); HEMOGLOBIN 13.2 g/dL (13.5-17.0); LYMPHOCYTES % (AUTO) 32.1 % (13-45); MEAN CORPUSCULAR HEMOGLOBIN 30.9 pg (27.0-33.4); MEAN CORPUSCULAR HGB CONC 33.4 g/dL (32.0-36.0); MEAN CORPUSCULAR VOLUME 93 fl (80-97); MONOCYTES % (AUTO) 7.2 % (3-13); PLATELET COUNT 229 10^3/uL (150-450); RED BLOOD COUNT 4.26 10^6/uL (4.35-5.55); RED CELL DISTRIBUTION WIDTH 15.2 % (11.5-14.0); SEGMENTED NEUTROPHILS % (AUTO) 59.6 % (42-78); TOTAL CELLS COUNTED % (AUTO) 100 %
[2020-03-13 07:48] LABS: ALBUMIN 3.8 g/dL (3.5-5.0); ALKALINE PHOSPHATASE 227 U/L (38-126); ANION GAP 8 (5-19); ASPARTATE AMINO TRANSFERASE 132 U/L (17-59); BILIRUBIN,DIRECT 0.2 mg/dL (0.0-0.4); BILIRUBIN,TOTAL 0.6 mg/dL (0.2-1.3); BLOOD UREA NITROGEN 17 mg/dL (7-20); CALCIUM 8.9 mg/dL (8.4-10.2); CARBON DIOXIDE 22 mmol/L (22-30); CHLORIDE 106 mmol/L (98-107); CREATINE KINASE 411 U/L (55-170); GLUCOSE 222 mg/dL (75-110); TOTAL PROTEIN 6.3 g/dL (6.3-8.2)
--- NOTE | 2020-03-13 07:50 | ER Document Report ---
Entered by WHITNEY WHITE SCRIBE 03/13/20 0722 Acting as scribe for:LITTLE [facility] MD ED Respiratory Problem - General Chief Complaint: Shortness Of Breath Stated Complaint: SHORTNESS OF BREATH Time Seen by Provider: 03/13/20 07:09 Primary Care Provider: GUADALUPE,VENITA [Primary Care Provider] - Follow up as needed Mode of Arrival: Ambulatory Information source: Patient Notes: This 60-year-old male patient presents to the emergency department today with complaints of shortness of breath with associated bilateral leg swelling. Patient was seen in this emergency department on 03/11/2020 and was sent home on Lasix for leg swelling following that visit. During that visit the patient reported that he had no shortness of breath according to [facility] records, although the patient states he has been short of breath for about a month. Patient st ates that his shortness of breath has gotten "really bad" twice over the last month. Patient states he was on his way to [place] for Mother's Day weekend and he had to pull off the side of the road 4 times due to shortness of breath. Patient states that seemed to get better but then last night his breathing became much worse again. Patient still complains of bilateral leg swelling as well. TRAVEL OUTSIDE OF THE [place] IN LAST 30 DAYS: No - Related Data Allergies/Adverse Reactions: amoxicillin Adverse Reaction (Verified 03/13/20 07:21) GI upset Past Medical History - General Information source: Patient - Social History Smoking Status: Current Every Day Smoker Cigarette use (# per day): Yes - 1ppd Frequency of alcohol use: None Drug Abuse: Cocaine Lives with: Family Family History: Reviewed & Not Pertinent Patient has homicidal ideation: No - Past Medical History Cardiac Medical History: Reports: Hx Hypertension Pulmonary Medical History: Reports: Hx COPD Endocrine Medical History: Reports: Hx Diabetes Mellitus Type 2 Musculoskeletal Medical History: Reports Hx Arthritis Psychiatric Medical History: Reports: Hx Depression Past Surgical History: Reports: Hx Appendectomy Review of Systems - Review of Systems Constitutional: No symptoms reported EENT: No symptoms reported Cardiovascular: No symptoms reported Respiratory: See HPI, Short of breath Gastrointestinal: No symptoms reported Genitourinary: No symptoms reported Male Genitourinary: No symptoms reported Musculoskeletal: See HPI, Leg swelling Skin: No symptoms reported Hematologic/Lymphatic: No symptoms reported Neurological/Psychological: No symptoms reported -: Yes All other systems reviewed and negative Physical Exam - Vital signs Vitals: Resp Pulse Ox 13 92 03/13/20 07:11 03/13/20 07:11 - Notes Notes: Physical Exam: General: Alert, appears short of breath. HEENT: Normocephalic. Atraumatic. PERRL. Extraocular movements intact. Oropharynx clear. Neck: Supple. Non-tender. Respiratory: Mild respiratory distress. Tachypneic into the low 30s with a pulse ox on room air between 92 and 95%. Rales in all lung ferreira posteriorly. Cardiovascular: Regular rate and rhythm. Abdominal: Normal Inspection. Non-tender. No distension. Normal Bowel Sounds. Back: No gross abnormalities. Extremities: Moves all four extremities. Upper extremities: Normal inspection. Normal ROM. Lower extremities: 2+ edema bilaterally. Normal ROM. Neurological: Normal cognition. AAOx4. Normal speech. Psychological: Normal affect. Normal Mood. Skin: Warm. Dry. Normal color. Course - Vital Signs Vital signs: Temp Pulse Resp BP Pulse Ox 97.7 F 89 25 H 173/126 H 96 03/13/20 07:20 03/13/20 07:20 03/13/20 09:26 03/13/20 09:26 03/13/20 09:26 - Laboratory Result Diagrams: 03/13/20 07:08 03/13/20 07:08 Laboratory results interpreted by me: 03/13/20 03/13/20 03/13/20 07:08 07:08 07:08 RBC 4.26 L Hgb 13.2 L RDW 15.2 H ABG pO2 ABG O2 Saturation Sodium 135.7 L Glucose 222 H AST 132 H ALT 103 H Alkaline Phosphatase 227 H Creatine Kinase 411 H NT-Pro-B Natriuret Pep 1900 H 03/13/20 07:41 RBC Hgb RDW ABG pO2 66.2 L ABG O2 Saturation 93.5 L Sodium Glucose AST ALT Alkaline Phosphatase Creatine Kinase NT-Pro-B Natriuret Pep - Diagnostic Test Radiology reviewed: Image reviewed, Reports reviewed - Chest x-ray shows congestive heart failure, cardiomegaly. - EKG Interpretation by Al EKG shows normal: Sinus rhythm, [place], Intervals, QRS Complexes. abnormal: ST-T Waves - Borderline anterior lateral T abnormalities Rate: Normal - 93 Rhythm: NSR [place]/QRS: Left axis deviation P Waves: LAE - Consults Dr. Stone Time consulted: 09:30 Consulted provider: will come to ER Critical Care Note - Critical Care Note Total time excluding time spent on procedures (mins): 40 Discharge - Discharge Clinical Impression: Cocaine abuse, Bilateral lower extremity edema Congestive heart failure Qualifiers: Heart failure type: unspecified Heart failure chronicity: acute Qualified Code(s): I50.9 - Heart failure, unspecified High blood pressure Qualifiers: Hypertension type: unspecified Qualified Code(s): I10 - Essential (primary) hypertension Condition: Fair Disposition: ADMITTED INPATIENT Admitting Provider: Melvi (Hospitalist) Unit Admitted: Telemetry Referrals: [facility] [Primary Care Provider] - Follow up as needed I personally performed the services described in the documentation, reviewed and edited the documentation which was dictated to the scribe in my presence, and it accurately records my words and actions.
[2020-03-13 07:51] LABS: ARTERIAL BLOOD BASE EXCESS -1.9 mmol/L; ARTERIAL BLOOD H2CO3 1.07 mmol/L (1.05-1.35); ARTERIAL BLOOD HCO3 22.1 mmol/L (20-24); ARTERIAL BLOOD O2 SATURATION 93.5 % (94-98); ARTERIAL BLOOD PCO2 35.4 mmHg (35-45); ARTERIAL BLOOD PH 7.41 (7.35-7.45); ARTERIAL BLOOD PO2 66.2 mmHg (80-100); ARTERIAL BLOOD TOTAL CO2 23.2 mmol/L (23-27)
[2020-03-13 07:52] LABS: ARTERIAL BLOOD FIO2 ROOM AIR
--- NOTE | 2020-03-13 07:53 | RADIOLOGY REPORT (SQ) ---
EXAM DESCRIPTION: CHEST SINGLE VIEW IMAGES COMPLETED DATE/TIME: 03/13/2020 7:35 am REASON FOR STUDY: Peripheral edema, shortness of breath COMPARISON: Chest films 01/20/2020, 01/13/2020 EXAM PARAMETERS: NUMBER OF VIEWS: One view. TECHNIQUE: Single frontal radiographic view of the chest acquired. RADIATION DOSE: NA LIMITATIONS: None. FINDINGS: LUNGS AND PLEURA: Pulmonary vascular congestion is present with Margaux lines at both lung bases from interstitial pulmonary edema. No gross pleural effusion. No pneumothorax. MEDIASTINUM AND HILAR STRUCTURES: No masses. Contour normal. HEART AND VASCULAR STRUCTURES: Moderate cardiomegaly BONES: No acute findings. HARDWARE: None in the chest. OTHER: No other significant finding. IMPRESSION: Fluid overload or congestive failure with pulmonary vascular congestion and interstitial pulmonary edema Moderate cardiomegaly TECHNICAL DOCUMENTATION: JOB ID: [id number] [employer]- All Rights Reserved Reading location - IP/workstation name: [email or web address]
[2020-03-13 07:59] LABS: NT PRO BNP 1900 pg/mL (<125)
[2020-03-13 08:03] LABS: TROPONIN I < 0.012 ng/mL
[2020-03-13 09:02] LABS: APPEARANCE,URINE CLEAR; BILIRUBIN,URINE NEGATIVE (NEGATIVE); COLOR,URINE COLORLESS; GLUCOSE, URINE NEGATIVE (NEGATIVE); KETONES,URINE NEGATIVE (NEGATIVE); LEUKOCYTE ESTERASE,URINE NEGATIVE (NEGATIVE); NITRITE,URINE NEGATIVE (NEGATIVE); PROTEIN,URINE NEGATIVE (NEGATIVE); URINE SPECIFIC GRAVITY 1.005; UROBILINOGEN,URINE NEGATIVE mg/dL (<2.0)
[2020-03-13 09:16] LABS: URINE AMPHETAMINES SCREEN NEGATIVE; URINE BARBITURATES SCREEN NEGATIVE; URINE BENZODIAZEPINES SCREEN NEGATIVE; URINE MARIJUANA (THC) SCREEN NEGATIVE; URINE METHADONE SCREEN NEGATIVE
[2020-03-13 09:21] LABS: URINE COCAINE SCREEN UNCONFIRMED POSITIVE; URINE PHENCYCLIDINE SCREEN UNCONFIRMED POSITIVE
[2020-03-13] MEDS ORDERED: TEMAZEPAM 7.5 MG CAPSULE PO PRN (10:10)
[2020-03-13] MEDS ORDERED: MAG HYDROX/AL HYDROX/SIMETH SUSP 30 ML UDCUP PO PRN (10:10)
[2020-03-13] MEDS ORDERED: ONDANSETRON 4 MG TAB.RAPDIS PO PRN (10:10)
[2020-03-13] MEDS ORDERED: IPRATROPIUM/ALBUTEROL 0.5-2.5 MG/3 ML AMPUL NEB PRN (10:10)
[2020-03-13] MEDS ORDERED: DEXTROSE 40% GEL 15 GM TUBE PO PRN ×2 (10:16)
[2020-03-13] MEDS ORDERED: GLUCAGON,HUMAN RECOMB 1 MG INJ IM PRN (10:16)
[2020-03-13] MEDS ORDERED: DEXTROSE 50%-WATER 25 GM/50 ML DISP.SYRIN IV PRN ×2 (10:16)
--- NOTE | 2020-03-13 10:39 | EKG REPORT ---
SEVERITY:- ABNORMAL ECG - SINUS RHYTHM LEFT ATRIAL ABNORMALITY BORDERLINE LEFT AXIS DEVIATION BORDERLINE T ABNORMALITIES, ANT-LAT LEADS : Confirmed by: Jorje Guerrero 13-Mar-2020 10:38:53
[2020-03-13] MEDS: CLONIDINE HCL 0.2 MG TABLET PO SCH ×3 (11:20→22:42)
[2020-03-13] MEDS: 1/2 NORMAL SALINE 1,000 ML IV PRN ×2 (11:20→12:51)
[2020-03-13] MEDS: INSULIN REG, HUMAN 100 UNIT/ML 3 ML VIAL (PYX) SUBCUT SCH ×3 (11:28→22:43)
--- NOTE | 2020-03-13 14:41 | PDOC H&P ---
History of Present Illness Admission Date/PCP: 03/13/20 09:54 [facility] Patient complains of: This 60-year-old gentleman presents emergency room with complaints of difficulty breathing and shortness of breath associated with bilateral leg swelling. It appears he was seen in the ED 2 days ago and was sent home on Lasix for leg swelling. He returns again today with the same complaints. He was also found to have a poorly controlled hypertension so is been admitted for further evaluation and management. History of Present Illness: SERGEY WHARTON is a 60 year old male This patient is been admitted with shortness of breath and difficulty breathing. This has been recurrent. Patient has been seen 9 times this year in the emergency department but appears he is never been admitted. He is a chronic cocaine abuse. He is BNP is found to be elevated at 1900 as well as abnormal LFTs which new for him. Troponin is within normal. EKG shows sinus rhythm with nonspecific T wave abnormalities. Toxicology screen is positive for PCP as well as cocaine. His initial blood pressure is 164/120 extending to 173/126 Past Medical History Cardiac Medical History: Reports: Hypertension Pulmonary Medical History: Reports: Chronic Obstructive Pulmonary Disease (COPD) Endocrine Medical History: Reports: Diabetes Mellitus Type 2 Musculoskeltal Medical History: Reports: Arthritis Psychiatric Medical History: Reports: Depression Past Surgical History Past Surgical History: Reports: Appendectomy Social History Lives with: Family Smoking Status: Current Every Day Smoker Hx Recreational Drug Use: Yes Drugs: Cocaine, Hallucinogen - Advance Directive Resuscitation Status: Full Code Family History Family History: Reviewed & Not Pertinent Parental Family History Reviewed: Yes Children Family History Reviewed: Yes Sibling(s) Family History Reviewed.: Yes Medication/Allergy Home Medications: Amoxicillin/Potassium Clav [Augmentin 875-125 Tablet] 1 tab PO BID #20 tab 02/29/20 Ibuprofen [Motrin 800 mg Tablet] 800 mg PO Q8H PRN #20 tab 02/29/20 Furosemide [Lasix 20 mg Tablet] 20 mg PO QAM #10 tablet 03/11/20 Albuterol Sulfate [Proair Respiclick] 1 puff IH Q4HP PRN 03/13/20 Allergies/Adverse Reactions: amoxicillin Adverse Reaction (Verified 03/13/20 07:21) GI upset Review of Systems All systems: reviewed and no additional remarkable complaints except as stated Constitutional: ABSENT: weakness Cardiovascular: PRESENT: dyspnea on exertion, edema, orthropnea. ABSENT: chest pain Respiratory: PRESENT: dyspnea. ABSENT: hemoptysis, sputum Physical Exam Vital Signs: Temp Pulse Resp BP Pulse Ox 97.8 F 89 25 H 173/126 H 96 03/13/20 10:10 03/13/20 07:20 03/13/20 09:26 03/13/20 09:26 03/13/20 09:26 Intake & Output 03/12/20 03/13/20 03/14/20 06:59 06:59 06:59 Output Total 3800 Balance -3800 Weight 86.183 kg General appearance: PRESENT: no acute distress, well-developed, well-nourished Head exam: PRESENT: atraumatic, normocephalic Eye exam: PRESENT: conjunctiva pink, EOMI, PERRLA. ABSENT: scleral icterus Ear exam: PRESENT: normal external ear exam Mouth exam: PRESENT: moist, tongue midline Neck exam: ABSENT: carotid bruit, JVD, lymphadenopathy, thyromegaly Respiratory exam: PRESENT: clear to auscultation alli. ABSENT: rales, rhonchi, wheezes Cardiovascular exam: PRESENT: RRR, +S1, +S2. ABSENT: diastolic murmur, rubs, systolic murmur Pulses: PRESENT: normal dorsalis pedis pul Vascular exam: PRESENT: normal capillary refill GI/Abdominal exam: PRESENT: normal bowel sounds, soft. ABSENT: distended, guarding, mass, organolmegaly, rebound, tenderness Rectal exam: PRESENT: deferred Extremities exam: PRESENT: full ROM. ABSENT: calf tenderness, clubbing, pedal edema Neurological exam: PRESENT: alert, awake, oriented to person, oriented to place, oriented to time, oriented to situation, CN II-XII grossly intact. ABSENT: motor sensory deficit Psychiatric exam: PRESENT: appropriate affect, normal mood. ABSENT: homicidal ideation, suicidal ideation Skin exam: PRESENT: dry, intact, warm. ABSENT: cyanosis, rash Results Laboratory Results: 03/13/20 07:08 03/13/20 07:08 03/13/20 03/13/20 03/13/20 07:08 07:08 07:41 WBC 4.0 RBC 4.26 L Hgb 13.2 L Hct 39.3 MCV 93 MCH 30.9 MCHC 33.4 RDW 15.2 H Plt Count 229 Seg Neutrophils % 59.6 Carbonic Acid 1.07 HCO3/H2CO3 Ratio 20:1 ABG pH 7.41 ABG pCO2 35.4 ABG pO2 66.2 L ABG HCO3 22.1 ABG O2 Saturation 93.5 L ABG Base Excess -1.9 FiO2 ROOM AIR Sodium 135.7 L Potassium 4.0 Chloride 106 Carbon Dioxide 22 Anion Gap 8 BUN 17 Creatinine 0.93 Est GFR ( Amer) > 60 Glucose 222 H Calcium 8.9 Total Bilirubin 0.6 AST 132 H Alkaline Phosphatase 227 H Total Protein 6.3 Albumin 3.8 Urine Color Urine Appearance Urine pH Ur Specific Zoe Urine Protein Urine Glucose (UA) Urine Ketones Urine Blood Urine Nitrite Ur Leukocyte Esterase Urine RBC (Auto) 03/13/20 08:38 WBC RBC Hgb Hct MCV MCH MCHC RDW Plt Count Seg Neutrophils % Carbonic Acid HCO3/H2CO3 Ratio ABG pH ABG pCO2 ABG pO2 ABG HCO3 ABG O2 Saturation ABG Base Excess FiO2 Sodium Potassium Chloride Carbon Dioxide Anion Gap BUN Creatinine Est GFR ( Amer) Glucose Calcium Total Bilirubin AST Alkaline Phosphatase Total Protein Albumin Urine Color COLORLESS Urine Appearance CLEAR Urine pH 7.0 Ur Specific Zoe 1.005 Urine Protein NEGATIVE Urine Glucose (UA) NEGATIVE Urine Ketones NEGATIVE Urine Blood NEGATIVE Urine Nitrite NEGATIVE Ur Leukocyte Esterase NEGATIVE Urine RBC (Auto) 1 03/13/20 03/13/20 07:08 07:08 Creatine Kinase 411 H Troponin I < 0.012 NT-Pro-B Natriuret Pep 1900 H Impressions: Chest X-Ray 03/13/20 07:24 IMPRESSION: Fluid overload or congestive failure with pulmonary vascular congestion and interstitial pulmonary edema Moderate cardiomegaly Assessment and Plan - Diagnosis (1) Hypertensive emergency Is this a current diagnosis for this admission?: Yes Plan: Likely is precipitated by cocaine use. Patient will be placed on clonidine. Will try and avoid beta-blockers for now as needed. (2) Type 2 diabetes mellitus Qualifiers: Diabetes mellitus penitentiary insulin use: without termite inspector use Is this a current diagnosis for this admission?: Yes Plan: She appears to be pretty noncompliant. His last hemoglobin A1c was (3) Substance abuse Is this a current diagnosis for this admission?: Yes Plan: Substance abuse including nicotine, cocaine, PCP and other illicit unnamed agents. Patient needs serious counseling (4) Cocaine abuse Is this a current diagnosis for this admission?: Yes Plan: Likely leading to hypertensive emergency as well as pulmonary vascular congestion (5) Congestive heart failure Qualifiers: Heart failure type: unspecified Heart failure chronicity: acute Qualified Code(s): I50.9 - Heart failure, unspecified Is this a current diagnosis for this admission?: Yes Plan: This is a new diagnosis, likely precipitated by cocaine use. An echocardiogram will be obtained. We will be able to be more specific as to what kind of CHF if any after reviewing the echo - Plan Summary Summary: An echocardiogram will be obtained. I suspect he probably has acute pulmonary edema secondary to cocaine abuse but he likely also has a component of hypertensive cardiomyopathy however we will check echo and his medications will be adjusted depending on hospital course. Patient will be placed on telemetry floor. I have started him on clonidine. He is advised on the need to abstain from his substance abuse - Time Time Spent with patient: 25-34 minutes Anticipated discharge: Home Within: within 48 hours
[2020-03-13] MEDS: FUROSEMIDE INJ/PF 40 MG/4 ML SDV IV SCH (17:06)
[2020-03-13] MEDS ORDERED: LORAZEPAM INJ 2 MG/1 ML VIAL IV ONE (19:45)
[2020-03-13 20:39] LABS: ANION GAP 7 (5-19); BLOOD UREA NITROGEN 22 mg/dL (7-20); CALCIUM 9.1 mg/dL (8.4-10.2); CARBON DIOXIDE 27 mmol/L (22-30); CHLORIDE 101 mmol/L (98-107); GLUCOSE 177 mg/dL (75-110); POTASSIUM 4.1 mmol/L (3.6-5.0)
[2020-03-14] MEDS: CLONIDINE HCL 0.2 MG TABLET PO SCH (05:46)
[2020-03-14 06:33] LABS: ALBUMIN 3.2 g/dL (3.5-5.0); ALKALINE PHOSPHATASE 162 U/L (38-126); ANION GAP 6 (5-19); ASPARTATE AMINO TRANSFERASE 38 U/L (17-59); BILIRUBIN,TOTAL 0.6 mg/dL (0.2-1.3); BLOOD UREA NITROGEN 19 mg/dL (7-20); CALCIUM 8.9 mg/dL (8.4-10.2); CARBON DIOXIDE 27 mmol/L (22-30); CHLORIDE 101 mmol/L (98-107); CREATINE KINASE 183 U/L (55-170); GLUCOSE 211 mg/dL (75-110); POTASSIUM 3.6 mmol/L (3.6-5.0); TOTAL PROTEIN 5.6 g/dL (6.3-8.2)
[2020-03-14] MEDS: INSULIN REG, HUMAN 100 UNIT/ML 3 ML VIAL (PYX) SUBCUT SCH ×4 (08:10→21:26)
[2020-03-14] MEDS: ENOXAPARIN SODIUM INJ 40 MG/0.4 ML DISP.SYRIN SUBCUT SCH (09:44)
[2020-03-14] MEDS: DOCUSATE SODIUM 100 MG CAPSULE PO SCH (09:44)
[2020-03-14] MEDS: FUROSEMIDE INJ/PF 40 MG/4 ML SDV IV SCH (09:44)
[2020-03-14] MEDS: 1/2 NORMAL SALINE 1,000 ML IV PRN (13:11)
[2020-03-14] MEDS ORDERED: CLONIDINE HCL 0.2 MG TABLET PO SCH (14:00)
[2020-03-14] MEDS ORDERED: CLONIDINE HCL 0.1 MG TABLET PO SCH (14:00)
--- NOTE | 2020-03-14 14:29 | PDOC PROGRESS REPORT ---
Subjective Progress Note for:: 03/14/20 Subjective:: Patient said he feels better. He denies any chest pain. Reason For Visit: HYPERTENSIVE EMERGENCY,COCAINE ABUSE,CHF Physical Exam Vital Signs: Temp Pulse Resp BP Pulse Ox 97.5 F 73 18 111/70 90 L 03/14/20 11:39 03/14/20 11:39 03/14/20 11:39 03/14/20 11:39 03/14/20 11:39 Intake & Output 03/13/20 03/14/20 03/15/20 06:59 06:59 06:59 Intake Total 687 1120 Output Total 4050 1125 Balance -3363 -5 Weight 92.6 kg General appearance: PRESENT: no acute distress, well-developed, well-nourished Head exam: PRESENT: atraumatic, normocephalic Eye exam: PRESENT: conjunctiva pink, EOMI, PERRLA. ABSENT: scleral icterus Ear exam: PRESENT: normal external ear exam Mouth exam: PRESENT: moist, tongue midline Neck exam: ABSENT: carotid bruit, JVD, lymphadenopathy, thyromegaly Respiratory exam: PRESENT: clear to auscultation alli. ABSENT: rales, rhonchi, wheezes Cardiovascular exam: PRESENT: RRR, +S1, +S2. ABSENT: diastolic murmur, rubs, systolic murmur Pulses: PRESENT: normal dorsalis pedis pul Vascular exam: PRESENT: normal capillary refill GI/Abdominal exam: PRESENT: normal bowel sounds, soft. ABSENT: distended, guarding, mass, organolmegaly, rebound, tenderness Rectal exam: PRESENT: deferred Extremities exam: PRESENT: full ROM. ABSENT: calf tenderness, clubbing, pedal edema Neurological exam: PRESENT: alert, awake, oriented to person, oriented to place, oriented to time, oriented to situation, CN II-XII grossly intact. ABSENT: motor sensory deficit Psychiatric exam: PRESENT: appropriate affect, normal mood. ABSENT: homicidal ideation, suicidal ideation Skin exam: PRESENT: dry, intact, warm. ABSENT: cyanosis, rash Results Laboratory Results: 03/13/20 07:08 03/14/20 05:11 03/13/20 03/14/20 20:17 05:11 Sodium 135.0 L 134.1 L Potassium 4.1 3.6 Chloride 101 101 Carbon Dioxide 27 27 Anion Gap 7 6 BUN 22 H 19 Creatinine 1.27 H 1.06 Est GFR ( Amer) > 60 > 60 Glucose 177 H 211 H Calcium 9.1 8.9 Magnesium 1.5 L Total Bilirubin 0.6 AST 38 Alkaline Phosphatase 162 H Total Protein 5.6 L Albumin 3.2 L 03/13/20 03/13/20 03/14/20 07:08 07:08 05:11 Creatine Kinase 411 H 183 H Troponin I < 0.012 NT-Pro-B Natriuret Pep 1900 H Impressions: Chest X-Ray 03/13/20 07:24 IMPRESSION: Fluid overload or congestive failure with pulmonary vascular congestion and interstitial pulmonary edema Moderate cardiomegaly Assessment and Plan - Diagnosis (1) Hypertensive emergency Is this a current diagnosis for this admission?: Yes Plan: This is secondary to cocaine abuse. His blood pressure has come down in fact it now borderline hypotensive. As such I have discontinued the clonidine of which he only received a few doses. If he needs to be placed on antihypertensive he can likely be placed on TEDDY inhibitor. I will defer this for now. (2) Type 2 diabetes mellitus Qualifiers: Diabetes mellitus manager terminal insulin use: without manager terminal use Is this a current diagnosis for this admission?: Yes Plan: He appears to be pretty noncompliant. His last hemoglobin A1c was more than 14 however this was back in 2018. Patient has been on no hypoglycemic agent. I will recheck his hemoglobin A1c. I did opt to start him on glyburide but this is only because I doubt that this patient will be compliant with insulin at all. (3) Substance abuse Is this a current diagnosis for this admission?: Yes Plan: Substance abuse including nicotine, cocaine, PCP and other illicit unnamed agents. Patient needs serious counseling (4) Cocaine abuse Is this a current diagnosis for this admission?: Yes Plan: Likely leading to hypertensive emergency as well as pulmonary vascular congestion. E (5) Congestive heart failure Qualifiers: Heart failure type: unspecified Heart failure chronicity: acute Qualified Code(s): I50.9 - Heart failure, unspecified Is this a current diagnosis for this admission?: Yes Plan: This is a new diagnosis, likely precipitated by cocaine use. Echocardiogram has been ordered to assess his left ventricular systolic function. Further medication adjustment can be done once the result is available (6) Transaminitis Is this a current diagnosis for this admission?: Yes Plan: Likely combination of his cocaine abuse, possible steatosis. His LFTs are slowly improving. I will defer ordering a sonogram now unless he does not improve - Plan Summary Summary: An echocardiogram will be obtained. I suspect he probably has acute pulmonary edema secondary to cocaine abuse but he likely also has a component of hypertensive cardiomyopathy however we will check echo and his medications will be adjusted depending on hospital course. Patient will be placed on telemetry floor. I have started him on clonidine. He is advised on the need to abstain from his substance abuse
[2020-03-14] MEDS: GLYBURIDE 5 MG TABLET PO SCH (18:24)
[2020-03-15 07:26] LABS: ALBUMIN 3.4 g/dL (3.5-5.0); ALKALINE PHOSPHATASE 128 U/L (38-126); ASPARTATE AMINO TRANSFERASE 21 U/L (17-59); BILIRUBIN,TOTAL 0.7 mg/dL (0.2-1.3); TOTAL PROTEIN 5.4 g/dL (6.3-8.2)
[2020-03-15] MEDS: GLYBURIDE 5 MG TABLET PO SCH (07:36)
[2020-03-15] MEDS: INSULIN REG, HUMAN 100 UNIT/ML 3 ML VIAL (PYX) SUBCUT SCH ×3 (07:36→16:12)
[2020-03-15] MEDS: DOCUSATE SODIUM 100 MG CAPSULE PO SCH (09:36)
[2020-03-15] MEDS: ENOXAPARIN SODIUM INJ 40 MG/0.4 ML DISP.SYRIN SUBCUT SCH (09:36)
[2020-03-15] MEDS: MAGNESIUM SULFATE/D5W 1 GM/100 ML RTUPB IV SCH ×2 (09:37→10:42)
[2020-03-15] MEDS ORDERED: FUROSEMIDE INJ/PF 40 MG/4 ML SDV IV SCH (10:00)
--- NOTE | 2020-03-15 12:44 | XCELERA REPORT ---
[address] [address] Transthoracic Echocardiogram Report Name: SERGEY WHARTON Age: 60 yrs Gender: Male : 1960 Patient Status: Inpatient Patient Location: [address] [place] [address] Study Date: 03/14/2020 05:39 PM Height: 74 in Weight: 190 lb BSA: 2.1 m2 Procedure: A two-dimensional transthoracic echocardiogram with color flow and Doppler was performed. Study Quality: Fair. Reason For Study: Pulmonary edema History: Pulmonary edema. Ordering Physician: CATHERINE CONSTANTINO Performed By: Jessica Holt Interpretation Summary The left ventricle is normal in size. There is normal left ventricular wall thickness. LV EF is 55% Left ventricular systolic function is low normal. The left ventricular wall motion is normal. There is no thrombus. No ASD,PFO , or ASDD seen. The right ventricle is normal in size and function. The right atrium is normal. The left atrium is moderately dilated. There is mild mitral leaflet calcification. There is mild mitral annular calcification. There is no evidence of mitral valve prolapse. There is no vegetation seen on the mitral valve. There is mild mitral stenosis There is a moderate amount of mitral regurgitation (? Moderate to severe) There is no aortic valvular vegetation. There is aortic sclerosis without aortic stenosis. There is no LVOT obstruction. No aortic regurgitation is present. There is no tricuspid stenosis. There is a mild amount of tricuspid regurgitation There is moderate pulmonary hypertension by echo RVSP is 49 to 54 mm of Hg , with RA mean of 15 to 20. There is no pulmonic valvular stenosis. There is no pulmonic valvular regurgitation. The aortic root is normal size. The inferior vena cava appeared dilated and decreased < 50% with respiration (RAP 15-20 mmHg) There is no pericardial effusion. MMode/2D Measurements & Calculations RVDd: 3.0 cm LVIDd: 5.8 cm FS: 26.7 % Ao root diam: 3.3 cm IVSd: 1.1 cm LVIDs: 4.2 cm EDV(Teich): 164.9 ml Ao root area: 8.6 cm2 LVPWd: 1.0 cm ESV(Teich): 80.1 ml LA dimension: 4.7 cm EF(Teich): 51.4 % Doppler Measurements & Calculations MV E max binta: MV P1/2t max binta: Ao V2 max: LV V1 max P.1 cm/sec 172.6 cm/sec 100.0 cm/sec 2.5 mmHg MV A max binta: MV P1/2t: 95.0 msec Ao max P.0 mmHgLV V1 max: 35.5 cm/sec MVA(P1/2t): 2.3 cm2 79.2 cm/sec MV E/A: 3.4 MV dec slope: 532.2 cm/sec2 MV dec time: 0.21 sec PA V2 max: TR max binta: MV P1/2t-pr_phl: 48.3 cm/sec 290.9 cm/sec 95.0 msec PA max PG: TR max P.8 mmHg 0.93 mmHg Left Ventricle The left ventricle is normal in size. There is normal left ventricular wall thickness. LV EF is 55%. Left ventricular systolic function is low normal. Doppler measurements suggest normal left ventricular diastolic function. The left ventricular wall motion is normal. There is no thrombus. No ASD,PFO , or ASDD seen. Right Ventricle The right ventricle is normal in size and function. Atria The right atrium is normal. The left atrium is moderately dilated. Mitral Valve There is mild mitral leaflet calcification. There is mild mitral annular calcification. There is no evidence of mitral valve prolapse. There is no vegetation seen on the mitral valve. There is mild mitral stenosis. There is a moderate amount of mitral regurgitation. (? Moderate to severe). Aortic Valve There is no aortic valvular vegetation. There is aortic sclerosis without aortic stenosis. There is no LVOT obstruction. No aortic regurgitation is present. Tricuspid Valve There is no tricuspid stenosis. There is a mild amount of tricuspid regurgitation. There is moderate pulmonary hypertension by echo. RVSP is 49 to 54 mm of Hg , with RA mean of 15 to 20. Pulmonic Valve There is no pulmonic valvular stenosis. There is no pulmonic valvular regurgitation. Great Vessels The aortic root is normal size. The inferior vena cava appeared dilated and decreased < 50% with respiration (RAP 15-20 mmHg). Effusions There is no pericardial effusion. : CATHERINE CONSTANTINO Lakshmi
--- NOTE | 2020-03-15 13:28 | PDOC DISCHARGE SUMMARY ---
Impression - Admit/DC Date/PCP Admission Date/Primary Care Provider: 03/13/20 09:54 [facility] Discharge Date: 03/15/20 - Discharge Diagnosis (1) Acute diastolic heart failure Is this a current diagnosis for this admission?: Yes (2) Hypertensive emergency Is this a current diagnosis for this admission?: Yes (3) Moderate mitral regurgitation Is this a current diagnosis for this admission?: Yes (4) Cocaine abuse Is this a current diagnosis for this admission?: Yes (5) Substance abuse Is this a current diagnosis for this admission?: Yes (6) Type 2 diabetes mellitus Is this a current diagnosis for this admission?: Yes - Additional Information Resuscitation Status: Full Code Discharge Diet: Cardiac, Diabetic Discharge Activity: Activity As Tolerated, Balance Activity w/Rest, Weigh Daily Referrals: ZOE VASQUEZ MD [ACTIVE STAFF] - 03/24/20 12:45 pm Prescriptions: Metformin HCl [Glucophage 500 mg Tablet] 500 mg PO BIDACBS #60 tab Furosemide [Lasix 20 mg Tablet] 20 mg PO QAM #30 tablet Lisinopril [Prinivil 10 mg Tablet] 10 mg PO DAILY #30 tablet Home Medications: Amoxicillin/Potassium Clav [Augmentin 875-125 Tablet] 1 tab PO BID #20 tab 02/29/20 Furosemide [Lasix 20 mg Tablet] 20 mg PO QAM #10 tablet 03/11/20 Albuterol Sulfate [Proair Respiclick] 1 puff IH Q4HP PRN 03/13/20 Furosemide [Lasix 20 mg Tablet] 20 mg PO QAM #30 tablet 03/15/20 Lisinopril [Prinivil 10 mg Tablet] 10 mg PO DAILY #30 tablet 03/15/20 Metformin HCl [Glucophage 500 mg Tablet] 500 mg PO BIDACBS #60 tab 03/15/20 History of Present Illiness History of Present Illness: According to admitting provider: This patient is been admitted with shortness of breath and difficulty breathing. This has been recurrent. Patient has been seen 9 times this year in the emergency department but appears he is never been admitted. He is a chronic cocaine abuse. He is BNP is found to be elevated at 1900 as well as abnormal LFTs which new for him. Troponin is within normal. EKG shows sinus rhythm with nonspecific T wave abnormalities. Toxicology screen is positive for PCP as well as cocaine. His initial blood pressure is 164/120 extending to 173/126 Hospital Course Hospital Course: Patient was admitted to the hospital for evaluation of shortness of breath. Chest x-ray revealed pulmonary edema. Physical exam findings noted lower extremity swelling as well and significantly elevated blood pressures. Patient was started on treatment for hypertensive emergency with acute diastolic heart failure. Toxicology was positive for PCP and cocaine and patient had endorsed recent use. Patient's hypertensive emergency was thought to be secondary to substance abuse. His acute diastolic heart failure was also thought to be due to this. Echocardiogram however revealed moderate mitral regurgitation and patient will be following up with Dr. Jackson in the clinic. Appointment has been set up. Patient has received adequate diuresis with IV Lasix and optimal blood pressure control and he has been discharged with lisinopril as well as Lasix. Patient has been counseled on abstaining from substance use. He has also been started on metformin for his diabetes. At this point, patient's symptoms have improved significantly and is lower extremity edema has resolved. He has been ambulating the hallways without any dyspnea on exertion and he is ready for discharge at this time. Physical Exam Vital Signs: Temp Pulse Resp BP Pulse Ox 97.6 F 76 19 127/82 H 98 03/15/20 11:49 03/15/20 11:49 03/15/20 11:49 03/15/20 11:49 03/15/20 11:49 Intake & Output 03/14/20 03/15/20 03/16/20 06:59 06:59 06:59 Intake Total 687 1760 1091 Output Total 4050 1500 Balance -3363 260 1091 Weight 92.6 kg 92.2 kg General appearance: PRESENT: no acute distress, cooperative Respiratory exam: PRESENT: clear to auscultation alli, unlabored Cardiovascular exam: PRESENT: +S1, +S2 Extremities exam: ABSENT: pedal edema, +1 edema, +2 edema Musculoskeletal exam: PRESENT: ambulatory Neurological exam: PRESENT: alert, awake, oriented to person, oriented to place, oriented to time, oriented to situation Results Laboratory Results: WBC 4.0 10^3/uL (4.0-10.5) 03/13/20 07:08 RBC 4.26 10^6/uL (4.35-5.55) L 03/13/20 07:08 Hgb 13.2 g/dL (13.5-17.0) L 03/13/20 07:08 Hct 39.3 % (37.9-51.0) 03/13/20 07:08 MCV 93 fl (80-97) 03/13/20 07:08 MCH 30.9 pg (27.0-33.4) 03/13/20 07:08 MCHC 33.4 g/dL (32.0-36.0) 03/13/20 07:08 RDW 15.2 % (11.5-14.0) H 03/13/20 07:08 Plt Count 229 10^3/uL (150-450) 03/13/20 07:08 Lymph % (Auto) 32.1 % (13-45) 03/13/20 07:08 [place] % (Auto) 7.2 % (3-13) 03/13/20 07:08 Eos % (Auto) 0.5 % (0-6) 03/13/20 07:08 Baso % (Auto) 0.6 % (0-2) 03/13/20 07:08 Absolute Neuts (auto) 2.4 10^3/uL (1.7-8.2) 03/13/20 07:08 Absolute Lymphs (auto) 1.3 10^3/uL (0.5-4.7) 03/13/20 07:08 Absolute Monos (auto) 0.3 10^3/uL (0.1-1.4) 03/13/20 07:08 Absolute Eos (auto) 0.0 10^3/uL (0.0-0.6) 03/13/20 07:08 Absolute Basos (auto) 0.0 10^3/uL (0.0-0.2) 03/13/20 07:08 Seg Neutrophils % 59.6 % (42-78) 03/13/20 07:08 Carbonic Acid 1.07 mmol/L (1.05-1.35) 03/13/20 07:41 HCO3/H2CO3 Ratio 20:1 03/13/20 07:41 ABG pH 7.41 (7.35-7.45) 03/13/20 07:41 ABG pCO2 35.4 mmHg (35-45) 03/13/20 07:41 ABG pO2 66.2 mmHg (80-100) L 03/13/20 07:41 ABG HCO3 22.1 mmol/L (20-24) 03/13/20 07:41 ABG Total CO2 23.2 mmol/L (23-27) 03/13/20 07:41 ABG O2 Saturation 93.5 % (94-98) L 03/13/20 07:41 ABG Base Excess -1.9 mmol/L 03/13/20 07:41 FiO2 ROOM AIR 03/13/20 07:41 Sodium 134.1 mmol/L (137-145) L 03/14/20 05:11 Potassium 3.6 mmol/L (3.6-5.0) 03/14/20 05:11 Chloride 101 mmol/L (98-107) 03/14/20 05:11 Carbon Dioxide 27 mmol/L (22-30) 03/14/20 05:11 Anion Gap 6 (5-19) 03/14/20 05:11 BUN 19 mg/dL (7-20) 03/14/20 05:11 Creatinine 1.06 mg/dL (0.52-1.25) 03/14/20 05:11 Est GFR ( Amer) > 60 (>60) 03/14/20 05:11 Est GFR (MDRD) Non-Af > 60 (>60) 03/14/20 05:11 Glucose 211 mg/dL (75-110) H 03/14/20 05:11 POC Glucose 127 mg/dL (70-110) H 03/15/20 11:49 Hemoglobin A1c % 7.0 % (4.7-6.0) H 03/15/20 06:29 Calcium 8.9 mg/dL (8.4-10.2) 03/14/20 05:11 Magnesium 1.5 mg/dL (1.6-2.3) L 03/15/20 06:29 Total Bilirubin 0.7 mg/dL (0.2-1.3) 03/15/20 06:29 Direct Bilirubin 0.0 mg/dL (0.0-0.4) 03/15/20 06:29 Neonat Total Bilirubin Not Reportable 03/15/20 06:29 Neonat Direct Bilirubin Not Reportable 03/15/20 06:29 Neonat Indirect Bili Not Reportable 03/15/20 06:29 AST 21 U/L (17-59) 03/15/20 06:29 ALT 53 U/L (<50) H 03/15/20 06:29 Alkaline Phosphatase 128 U/L (38-126) H 03/15/20 06:29 Creatine Kinase 183 U/L (55-170) H 03/14/20 05:11 Troponin I < 0.012 ng/mL 03/13/20 07:08 NT-Pro-B Natriuret Pep 1900 pg/mL (<125) H 03/13/20 07:08 Total Protein 5.4 g/dL (6.3-8.2) L 03/15/20 06:29 Albumin 3.4 g/dL (3.5-5.0) L 03/15/20 06:29 Urine Color COLORLESS 03/13/20 08:38 Urine Appearance CLEAR 03/13/20 08:38 Urine pH 7.0 (5.0-9.0) 03/13/20 08:38 Ur Specific [place] 1.005 03/13/20 08:38 Urine Protein NEGATIVE mg/dL (NEGATIVE) 03/13/20 08:38 Urine Glucose (UA) NEGATIVE mg/dL (NEGATIVE) 03/13/20 08:38 Urine Ketones NEGATIVE mg/dL (NEGATIVE) 03/13/20 08:38 Urine Blood NEGATIVE (NEGATIVE) 03/13/20 08:38 Urine Nitrite NEGATIVE (NEGATIVE) 03/13/20 08:38 Urine Bilirubin NEGATIVE (NEGATIVE) 03/13/20 08:38 Urine Urobilinogen NEGATIVE mg/dL (<2.0) 03/13/20 08:38 Ur Leukocyte Esterase NEGATIVE (NEGATIVE) 03/13/20 08:38 Urine RBC (Auto) 1 /HPF 03/13/20 08:38 Urine Mucus (Auto) RARE /LPF 03/13/20 08:38 Urine Ascorbic Acid NEGATIVE (NEGATIVE) 03/13/20 08:38 Urine Opiates Screen NEGATIVE 03/13/20 08:38 Urine Methadone Screen NEGATIVE 03/13/20 08:38 Ur Barbiturates Screen NEGATIVE 03/13/20 08:38 Ur Phencyclidine Scrn UNCONFIRMED POSITIVE 03/13/20 08:38 Ur Amphetamines Screen NEGATIVE 03/13/20 08:38 U Benzodiazepines Scrn NEGATIVE 03/13/20 08:38 Urine Cocaine Screen UNCONFIRMED POSITIVE 03/13/20 08:38 U Marijuana (THC) Screen NEGATIVE 03/13/20 08:38 03/13/20 07:08 Troponin I < 0.012 NT-Pro-B Natriuret Pep 1900 H Impressions: Chest X-Ray 03/13/20 07:24 IMPRESSION: Fluid overload or congestive failure with pulmonary vascular congestion and interstitial pulmonary edema Moderate cardiomegaly Plan Time Spent: Greater than 30 Minutes Stroke Is this a Stroke Patient?: No Acute Heart Failure - Is this a Heart Failure Patient?: Yes Documentation of LVEF assessment?: Yes LVEF: LVEF Greater Than 40% Anticoagulant Therapy: N/A
[2020-03-15 14:10] VITALS: BP 144/82
== END 2020-03-15 16:00 | disposition home or self-care (01) | DRG 304 ==
LOC: ER 06:48 → EH 09:54 → 3S 12:43
PROVIDERS: ADMIT Internal Medicine; ATTEND Internal Medicine
DX: I16.1 Hypertensive emergency (principal); I50.31 Acute diastolic (congestive) heart failure; I11.0 Hypertensive heart disease with heart failure; T40.5X5A Adverse effect of cocaine, initial encounter; I34.0 Nonrheumatic mitral (valve) insufficiency; E11.9 Type 2 diabetes mellitus without complications; F14.10 Cocaine abuse, uncomplicated; J44.9 Chronic obstructive pulmonary disease, unspecified; F16.10 Hallucinogen abuse, uncomplicated; F32.9 Major depressive disorder, single episode, unspecified; F17.210 Nicotine dependence, cigarettes, uncomplicated; R74.0 Nonspecific elevation of levels of transaminase and lactic acid dehydrogenase [LDH]; Z79.899 Other long term (current) drug therapy; Z79.84 Long term (current) use of oral hypoglycemic drugs; Z88.1 Allergy status to other antibiotic agents
CPT/HCPCS: 36415; 71045; 80053; 80076; 80307; 81001; 82550; 82803; 82962; 83036; 83735; 83880; 84484; 85025; 93005; 93010; 93306; 96374; 99291; J1650; J1815; J1940; J2060; J3475; J3490; J7620

== ENCOUNTER 2020-04-09 02:41 | Emergency (ER) | payer MEDICARE ==
[2020-04-09 02:45] VITALS: BP 155/126
[2020-04-09 03:26] LABS: ABSOLUTE EOSINOPHILS # (AUTO) 0.1 10^3/uL (0.0-0.6); ABSOLUTE LYMPHOCYTES (AUTO) 1.6 10^3/uL (0.5-4.7); ABSOLUTE MONOCYTES (AUTO) 0.2 10^3/uL (0.1-1.4); BASOPHILS % (AUTO) 0.4 % (0-2); EOSINOPHILS % (AUTO) 1.3 % (0-6); HEMATOCRIT 41.8 % (37.9-51.0); HEMOGLOBIN 13.7 g/dL (13.5-17.0); LYMPHOCYTES % (AUTO) 42.1 % (13-45); MEAN CORPUSCULAR HGB CONC 32.7 g/dL (32.0-36.0); MEAN CORPUSCULAR VOLUME 92 fl (80-97); MONOCYTES % (AUTO) 4.9 % (3-13); PLATELET COUNT 190 10^3/uL (150-450); RED BLOOD COUNT 4.56 10^6/uL (4.35-5.55); RED CELL DISTRIBUTION WIDTH 14.5 % (11.5-14.0); SEGMENTED NEUTROPHILS % (AUTO) 51.3 % (42-78); TOTAL CELLS COUNTED % (AUTO) 100 %; WHITE BLOOD COUNT 3.9 10^3/uL (4.0-10.5)
--- NOTE | 2020-04-09 03:36 | RADIOLOGY REPORT (SQ) ---
EXAM DESCRIPTION: XR CHEST 2 VIEWS COMPLETED DATE/TME: 04/09/2020 00:00 CLINICAL HISTORY: 60 years, Male, sob COMPARISON: 03/13/2020 chest NUMBER OF VIEWS: 2 TECHNIQUE: 2 views of the chest LIMITATIONS: None. FINDINGS: Heart is enlarged but stable. Atheromatous change of the thoracic aorta. Interstitial prominence with perihilar airspace opacities bilaterally. No pneumothorax. IMPRESSION: Cardiomegaly with prominence of the pulmonary interstitium and superimposed perihilar airspace opacities. Findings may reflect pulmonary edema and/or pneumonia copyright 2010 [employer]- All Rights Reserved
[2020-04-09 03:42] LABS: ALKALINE PHOSPHATASE 147 U/L (38-126); ASPARTATE AMINO TRANSFERASE 238 U/L (17-59); BILIRUBIN,TOTAL 0.8 mg/dL (0.2-1.3); BLOOD UREA NITROGEN 13 mg/dL (7-20); CALCIUM 9.5 mg/dL (8.4-10.2); CARBON DIOXIDE 27 mmol/L (22-30); CHLORIDE 106 mmol/L (98-107); CREATINE KINASE 205 U/L (55-170); GLUCOSE 171 mg/dL (75-110); POTASSIUM 4.3 mmol/L (3.6-5.0); TOTAL PROTEIN 6.5 g/dL (6.3-8.2)
[2020-04-09 03:48] LABS: ANION GAP 4 (5-19)
[2020-04-09 03:54] LABS: NT PRO BNP 2030 pg/mL (<125)
[2020-04-09 03:57] LABS: TROPONIN I < 0.012 ng/mL
[2020-04-09] MEDS ORDERED: FUROSEMIDE INJ/PF 20 MG/2 ML SDV IV ONE (04:29)
[2020-04-09] MEDS ORDERED: NITROGLYCERIN 2% OINTMENT 1 GM PACKET TP ONE (04:29)
--- NOTE | 2020-04-09 04:36 | ER Document Report ---
ED General - General Chief Complaint: Shortness Of Breath Stated Complaint: SHORTNESS OF BREATH Time Seen by Provider: 04/09/20 04:23 Primary Care Provider: ZOE VASQUEZ MD [ACTIVE STAFF] - Follow up as needed TRAVEL OUTSIDE OF THE [place] IN LAST 30 DAYS: No - HPI Notes: Chief complaint: Breathing difficulty and swelling of lower legs and feet History of present illness: 60-year-old male followed by [facility] with a history of hypertensive cardiovascular disease, diabetes mellitus type 2 and congestive heart failure now presenting with several days history of increased difficulty with breathing and progressive swelling of both lower legs and feet. Patient has been previously admitted to the inpatient hospitalist service here with discharge 1 month ago. He was exhibiting findings of uncontrolled hypertension with hypertensive crisis resulting in diastolic dysfunction/decom pensated heart failure. At the time of admission he was smoking cigarettes and also was using cocaine. He says he is abandon both cocaine and cigarettes since his last hospitalization. His medications at discharge included furosemide, lisinopril and metformin. He indicates that he ran out of the furosemide about a week ago although he says he remains compliant with the lisinopril and metformin. He says his chest feels tight when he become short of breath but denies any jud chest pain. He coughs up a small amount of dark sputum. He denies hemoptysis. He denies fever or chills. Patient was also previously diagnosed with COPD and he has a nebulizer at home and uses this sporadically. - Related Data Allergies/Adverse Reactions: amoxicillin Adverse Reaction (Verified 03/13/20 07:21) GI upset Past Medical History - General Information source: Patient, [facility] Records - Social History Smoking Status: Former Smoker Frequency of alcohol use: Occasional Drug Abuse: Other - Past use of cocaine although he denies any drug use within the last 30 days Family History: Reviewed & Not Pertinent Patient has homicidal ideation: No - Past Medical History Cardiac Medical History: Reports: Hx Congestive Heart Failure, Hx Hypertension Pulmonary Medical History: Reports: Hx COPD Endocrine Medical History: Reports: Hx Diabetes Mellitus Type 2 Renal/ Medical History: Denies: Hx Peritoneal Dialysis Musculoskeletal Medical History: Reports Hx Arthritis Psychiatric Medical History: Reports: Hx Depression Past Surgical History: Reports: Hx Appendectomy Review of Systems - Review of Systems Notes: Constitutional: Negative for fever. HENT: Negative for sore throat. Eyes: Negative for visual changes. Cardiovascular: As per HPI. Respiratory: As per HPI Gastrointestinal: Negative for abdominal pain, vomiting or diarrhea. Genitourinary: Negative for dysuria. Musculoskeletal: Negative for back pain. Skin: Negative for rash. Neurological: Negative for headaches, focal weakness or numbness. 10 point ROS negative except as marked above and in HPI. Physical Exam - Vital signs Vitals: Temp Pulse Resp BP Pulse Ox 98.7 F 102 H 16 155/126 H 100 04/09/20 02:45 04/09/20 02:45 04/09/20 02:45 04/09/20 02:45 04/09/20 02:45 - Notes Notes: GENERAL: Male patient approximately stated age appearing in no acute distress. SKIN: Good turgor no rashes. HEAD: Normocephalic atraumatic. EYES: PERRLA. EOMI. Conjunctivae and sclerae clear. EARS: CANALS AND TMS CLEAR. NOSE: CLEAR. MOUTH: Moist mucosa. Good dentition. No stridor or edema. No drooling. NECK: Supple. 2 cm JVD at 30 degrees elevation. No masses or thyromegaly. No adenopathy. Carotids 2+ without bruits. BACK: Symmetrical without tenderness. CHEST: Respirations unlabored. Diminished breath sounds at both bases with dry crackles bilaterally. HEART: Regular rhythm. S4 gallop present. No murmur or rub. ABDOMEN: Soft nontender without masses, organomegaly or rebound. Bowel sounds normally active. No bruits. GENITALIA: Deferred. EXTREMITIES: 2+ bilateral pretibial edema. No calf tenderness. Cap refill less than 1.5 seconds. Dorsalis pedis and posterior tibial pulses 3+ and symmetrical. NEUROLOGICAL: GCS 15. Alert and oriented x3. Normal gait. Fluent speech. Associate Automation Engineer nial nerves II through XII intact. Sensorimotor and cerebellar normal. Normal tone. PSYCHIATRIC: Appropriate affect. Course - Re-evaluation Re-evalutation: 04/09/20 04:39 Patient is extremely hypertensive and has been noncompliant with his Lasix. I will place some Nitropaste and give him 40 mg of IV Lasix. He is oxygenating n ormally. His chest x-ray shows vascular congestion. His initial troponin is normal. BNP is up. Awaiting results of urine drug screen. 04/09/20 05:38 Patient is urinated multiple times and despite being advised by the nurses that we needed a urine specimen he is dulled the urinal down the sink. When I ask him about this he began cursing at me and became very loud and agitated. He subsequently went into the bathroom and came out with a urine cup that appeared to have tap water in it. When I confronted him about this he insisted that we sent the lab to be tested which I have done. At this point his blood pressure has come down to 140/95. He has had a brisk diuresis from the IV Lasix and appears to be breathing comfortably on room air. His troponin is normal. He does have some elevation of his LFTs consistent with passive hepatic congestion. I would anticipate putting him back on oral Lasix as they had previously prescribed and sending him out for follow-up with primary care physician. I am rather suspicious that he is likely to still be using cocaine and I would like to document this on a urine drug screen if possible. 04/09/20 05:43 Patient has eloped from the department as I suspect that he would. - Vital Signs Vital signs: Temp Pulse Resp BP Pulse Ox 98.7 F 102 H 16 155/126 H 100 04/09/20 02:45 04/09/20 02:45 04/09/20 02:45 04/09/20 02:45 04/09/20 02:45 - Laboratory Result Diagrams: 04/09/20 03:10 04/09/20 03:10 Laboratory results interpreted by me: 04/09/20 04/09/20 04/09/20 03:10 03:10 03:10 WBC 3.9 L RDW 14.5 H Anion Gap 4 L Glucose 171 H AST 238 H ALT 101 H Alkaline Phosphatase 147 H Creatine Kinase 205 H NT-Pro-B Natriuret Pep 2030 H Discharge - Discharge Clinical Impression: Eloped from emergency department, Heart failure, diastolic, with acute decompensation Condition: Fair Disposition: ELOPED Referrals: ZOE VASQUEZ MD [ACTIVE STAFF] - Follow up as needed
[2020-04-09 06:08] LABS: APPEARANCE,URINE CLEAR; BILIRUBIN,URINE NEGATIVE (NEGATIVE); COLOR,URINE COLORLESS; GLUCOSE, URINE NEGATIVE (NEGATIVE); KETONES,URINE NEGATIVE (NEGATIVE); LEUKOCYTE ESTERASE,URINE NEGATIVE (NEGATIVE); NITRITE,URINE NEGATIVE (NEGATIVE); PROTEIN,URINE NEGATIVE (NEGATIVE); URINE SPECIFIC GRAVITY 1.004; UROBILINOGEN,URINE NEGATIVE mg/dL (<2.0)
[2020-04-09 06:32] LABS: URINE AMPHETAMINES SCREEN NEGATIVE; URINE BARBITURATES SCREEN NEGATIVE; URINE BENZODIAZEPINES SCREEN NEGATIVE; URINE COCAINE SCREEN NEGATIVE; URINE MARIJUANA (THC) SCREEN NEGATIVE; URINE METHADONE SCREEN NEGATIVE; URINE PHENCYCLIDINE SCREEN NEGATIVE
--- NOTE | 2020-04-09 09:45 | EKG REPORT ---
SEVERITY:- BORDERLINE ECG - SINUS RHYTHM PROBABLE LEFT ATRIAL ABNORMALITY LEFT AXIS DEVIATION BORDERLINE PROLONGED QT INTERVAL : Confirmed by: Gi Harris MD 09-Apr-2020 09:44:26
== END 2020-04-09 05:49 | disposition left against medical advice (07) ==
LOC: ER 02:41
DX: I11.0 Hypertensive heart disease with heart failure (principal); I50.33 Acute on chronic diastolic (congestive) heart failure; R06.02 Shortness of breath; M79.89 Other specified soft tissue disorders; R07.9 Chest pain, unspecified; R05 Cough; Z53.20 Procedure and treatment not carried out because of patient's decision for unspecified reasons; I25.10 Atherosclerotic heart disease of native coronary artery without angina pectoris; E11.9 Type 2 diabetes mellitus without complications; Z79.899 Other long term (current) drug therapy; Z79.84 Long term (current) use of oral hypoglycemic drugs; J44.9 Chronic obstructive pulmonary disease, unspecified; Z88.1 Allergy status to other antibiotic agents; Z87.891 Personal history of nicotine dependence
CPT/HCPCS: 93005; 99281; 96374; 36415; 80307 ×2; 82550; 85025; 80053; 81001; 84484; 83880; 71046; 93010; A9270; J1940

== ENCOUNTER 2020-05-14 14:08 | Emergency (ER) | payer OTHER, MEDICARE ==
--- NOTE | 2020-05-14 16:05 | ER Document Report ---
HPI - HPI Patient complains to provider of: Cough congestion Time Seen by Provider: 05/14/20 15:54 Onset: Just prior to arrival Quality of pain: Achy Context: This is a 60-year-old male smoker who presents with a cough congestion he has had pneumonia in the past is concerned because he might of been exposed to mold does not have a fever nausea vomiting diarrhea. - REPRODUCTIVE Reproductive: DENIES: : Past Medical History - General Information source: Patient - Social History Smoking Status: Current Every Day Smoker Cigarette use (# per day): Yes - 20 Frequency of alcohol use: None Drug Abuse: None Lives with: Alone Family History: Reviewed & Not Pertinent - Past Medical History Cardiac Medical History: Reports: Hx Congestive Heart Failure, Hx Hypertension Pulmonary Medical History: Reports: Hx COPD Endocrine Medical History: Reports: Hx Diabetes Mellitus Type 2 Renal/ Medical History: Denies: Hx Peritoneal Dialysis Musculoskeletal Medical History: Reports Hx Arthritis Psychiatric Medical History: Reports: Hx Depression Past Surgical History: Reports: Hx Appendectomy Vertical Provider Document - CONSTITUTIONAL Agree With Documented VS: Yes - INFECTION CONTROL TRAVEL OUTSIDE OF THE [place] IN LAST 30 DAYS: No - HEENT HEENT: Atraumatic, Normocephalic, PERRLA - NECK Neck: Normal Inspection, Supple - RESPIRATORY Respiratory: Breath Sounds Normal - CARDIOVASCULAR Cardiovascular: Regular Rate - GI/ABDOMEN Gastrointestinal: Abdomen Soft, Abdomen Non-Tender - BACK Back: Normal Inspection Course - Re-evaluation Re-evalutation: 05/14/20 17:58 Patient has been here 3 hours and 50 minutes apparently they were just able to obtain the blood 20 minutes ago patient does not want to wait for results and insisted he is him to sign out a AGAINST MEDICAL ADVICE we did review the x-ray findings which was the only thing I had he was advised to certainly return to the emergency room tomorrow to complete his evaluation would be happy to do so he was very pleasant he thanked me for everything were able to do so far he said part of his rationale was that it was cold I did offer to get him a warm blanket he is in the just he was leaving Discharge - Discharge Clinical Impression: Left against medical advice Condition: Fair Disposition: AGAINST MEDICAL ADVICE Additional Instructions: Again this is a 60-year-old male who had no chest pain no shortness of breath no exertional chest pain no exertional shortness of breath he did have a cough he states that he had yellow-greenish phlegm he states that he does smoke although is not supposed to his does not now states he had 2 areas of mold in the house and he was afraid he might have a pneumonia from that pulmonary be happy to him get testing for such. After 3 hours and 50 minutes they were able to obtain the blood just 20 minutes ago the patient has decided to leave AGAINST MEDICAL ADVICE he was advised that he should can certainly return to the emergency room absolutely anytime for any change worsening condition and we would be happy to provide a complete and thorough work-up if he just wanted to come back later. [facility]errals: [facility] [Primary Care Provider] - Follow up as needed
--- NOTE | 2020-05-14 16:39 | RADIOLOGY REPORT (SQ) ---
EXAM DESCRIPTION: CHEST SINGLE VIEW IMAGES COMPLETED DATE/TIME: 05/14/2020 4:22 pm REASON FOR STUDY: pain sp fall COMPARISON: 04/09/2020 NUMBER OF VIEWS: One view. TECHNIQUE: Single frontal radiographic view of the chest acquired. LIMITATIONS: None. FINDINGS: LUNGS AND PLEURA: No opacities, masses or pneumothorax. No pleural effusion. MEDIASTINUM AND HILAR STRUCTURES: No masses. Contour normal. HEART AND VASCULAR STRUCTURES: Heart enlarged without failure. Normal vasculature. BONES: No acute findings. HARDWARE: None in the chest. OTHER: No other significant finding. IMPRESSION: HEART ENLARGED WITHOUT FAILURE. NO OTHER SIGNIFICANT RADIOGRAPHIC FINDING IN THE CHEST. TECHNICAL DOCUMENTATION: JOB ID: [id number] 2010 [email or web address]- All Rights Reserved Reading location - IP/workstation name: [email or web address]
[2020-05-14 18:12] VITALS: BP 150/92
[2020-05-14 18:32] LABS: A TYPE INFLUENZA AG NEGATIVE (NEGATIVE); B INFLUENZA AG NEGATIVE (NEGATIVE)
--- NOTE | 2020-05-15 08:46 | EKG REPORT ---
SEVERITY:- ABNORMAL ECG - SINUS RHYTHM LVH BIATRIAL ABNORMALITY BORDERLINE R WAVE PROGRESSION, ANTERIOR LEADS : Confirmed by: Marcel Mabry MD 15-May-2020 08:45:59
== END 2020-05-14 18:19 | disposition left against medical advice (07) ==
LOC: ER 14:08
DX: J44.9 Chronic obstructive pulmonary disease, unspecified (principal); R05 Cough; F17.210 Nicotine dependence, cigarettes, uncomplicated; I10 Essential (primary) hypertension; E11.9 Type 2 diabetes mellitus without complications; Z87.01 Personal history of pneumonia (recurrent); Z77.120 Contact with and (suspected) exposure to mold (toxic); Z53.29 Procedure and treatment not carried out because of patient's decision for other reasons
CPT/HCPCS: 36415; 71045; 84484; 87070; 87804; 87880; 93005; 93010; 99284

== ENCOUNTER 2020-05-16 11:52 | Emergency (ER) | payer OTHER, MEDICARE ==
--- NOTE | 2020-05-16 14:04 | ER Document Report ---
ED Medical Screen (RME) - General Chief Complaint: Chest Pain Stated Complaint: CHEST PAIN Time Seen by Provider: 05/16/20 13:57 Primary Care Provider: GUADALUPE,VENITA [Primary Care Provider] - Follow up as needed Mode of Arrival: Ambulatory Information source: Patient Notes: HPI; 60-year-old male states he was called by the [place] and told him that he needed to return to the emergency room. Patient was seen here on Saturday and left AMA with an elevated troponin. Patient initially was here on Saturday for chest pain. States he is no longer having chest pain. Offers no other concerns or complaints at this time. PE: Alert and oriented x3. No acute distress noted. Lungs: Clear to auscultation without rales, rhonchi, wheezes. Heart: Regular rate rhythm without murmurs, rubs, gallops. I have greeted and performed a rapid initial assessment of this patient. A comprehensive ED assessment and evaluation of the patient, analysis of test results and completion of the medical decision making process will be conducted by additional ED providers. I have specifically instructed the patient or family members with the patient to immediately return to any nursing staff should anything change in the patient's condition or with their chief complaint. TRAVEL OUTSIDE OF THE [place] IN LAST 30 DAYS: No - Related Data Allergies/Adverse Reactions: amoxicillin Adverse Reaction (Verified 05/16/20 13:55) GI upset Past Medical History - Social History Chew tobacco use (# tins/day): No Drug Abuse: None - Past Medical History Cardiac Medical History: Reports: Hx Congestive Heart Failure, Hx Hypertension Pulmonary Medical History: Reports: Hx COPD Endocrine Medical History: Reports: Hx Diabetes Mellitus Type 2 Renal/ Medical History: Denies: Hx Peritoneal Dialysis Musculoskeltal Medical History: Reports Hx Arthritis Psychiatric Medical History: Reports: Hx Depression Past Surgical History: Reports: Hx Appendectomy Physical Exam - Vital signs Vitals: Temp Pulse Resp BP Pulse Ox 98 F 81 20 134/57 H 98 05/16/20 12:05/16/20 12:05/16/20 12:05/16/20 12:05/16/20 12:20 Course - Vital Signs Vital signs: Temp Pulse Resp BP Pulse Ox 98 F 81 20 134/57 H 98 05/16/20 12:05/16/20 12:05/16/20 12:20 05/16/20 12:20 05/16/20 12:20 Doctor's Discharge - Discharge Referrals: [facility] [Primary [facility]] - Follow up as needed
[2020-05-16 14:33] LABS: ABSOLUTE EOSINOPHILS # (AUTO) 0.1 10^3/uL (0.0-0.6); ABSOLUTE LYMPHOCYTES (AUTO) 1.8 10^3/uL (0.5-4.7); ABSOLUTE MONOCYTES (AUTO) 0.6 10^3/uL (0.1-1.4); ABSOLUTE NEUT (AUTO) 3.6 10^3/uL (1.7-8.2); BASOPHILS % (AUTO) 0.8 % (0-2); EOSINOPHILS % (AUTO) 1.2 % (0-6); HEMATOCRIT 46.8 % (37.9-51.0); HEMOGLOBIN 15.6 g/dL (13.5-17.0); MEAN CORPUSCULAR HEMOGLOBIN 30.2 pg (27.0-33.4); MEAN CORPUSCULAR HGB CONC 33.4 g/dL (32.0-36.0); MEAN CORPUSCULAR VOLUME 91 fl (80-97); MONOCYTES % (AUTO) 9.4 % (3-13); PLATELET COUNT 291 10^3/uL (150-450); RED BLOOD COUNT 5.17 10^6/uL (4.35-5.55); RED CELL DISTRIBUTION WIDTH 14.5 % (11.5-14.0); SEGMENTED NEUTROPHILS % (AUTO) 59.6 % (42-78); TOTAL CELLS COUNTED % (AUTO) 100 %
--- NOTE | 2020-05-16 14:45 | RADIOLOGY REPORT (SQ) ---
EXAM DESCRIPTION: CHEST 2 VIEWS IMAGES COMPLETED DATE/TIME: 05/16/2020 2:37 pm REASON FOR STUDY: chest pain COMPARISON: 05/14/2020 EXAM PARAMETERS: NUMBER OF VIEWS: two views TECHNIQUE: Digital Frontal and Lateral radiographic views of the chest acquired. RADIATION DOSE: NA LIMITATIONS: none FINDINGS: LUNGS AND PLEURA: No opacities, masses or pneumothorax. No pleural effusion. MEDIASTINUM AND HILAR STRUCTURES: No masses or contour abnormalities. HEART AND VASCULAR STRUCTURES: Heart remains enlarged with central vascular prominence. BONES: No acute findings. HARDWARE: None in the chest. OTHER: No other significant finding. IMPRESSION: Cardiomegaly with mild central vascular congestion. Similar findings were noted on prio r exam. TECHNICAL DOCUMENTATION: JOB ID: [id number] 2010 [employer]- All Rights Reserved Reading location - IP/workstation name: [email or web address]
[2020-05-16 14:54] LABS: ALBUMIN 4.3 g/dL (3.5-5.0); ALKALINE PHOSPHATASE 106 U/L (38-126); ANION GAP 6 (5-19); ASPARTATE AMINO TRANSFERASE 25 U/L (17-59); BILIRUBIN,TOTAL 0.3 mg/dL (0.2-1.3); BLOOD UREA NITROGEN 14 mg/dL (7-20); CARBON DIOXIDE 32 mmol/L (22-30); CHLORIDE 99 mmol/L (98-107); CREATINE KINASE 362 U/L (55-170); GLUCOSE 177 mg/dL (75-110); POTASSIUM 4.5 mmol/L (3.6-5.0); TOTAL PROTEIN 7.4 g/dL (6.3-8.2)
[2020-05-16 15:20] LABS: CREATINE KINASE MB 2.31 ng/mL (<4.55); TROPONIN I < 0.012 ng/mL
[2020-05-16 16:41] VITALS: BP 150/93
--- NOTE | 2020-05-16 21:03 | EKG REPORT ---
SEVERITY:- ABNORMAL ECG - SINUS RHYTHM ATRIAL PREMATURE COMPLEX MARLON, CONSIDER BIATRIAL ABNORMALITIES LVH WITH SECONDARY REPOLARIZATION ABNORMALITY : Confirmed by: Marcel Mabry MD 16-May-2020 21:02:31
== END 2020-05-16 17:25 | disposition home or self-care (01) ==
LOC: ER 11:52
DX: Z53.20 Procedure and treatment not carried out because of patient's decision for unspecified reasons (principal); R07.9 Chest pain, unspecified; R79.89 Other specified abnormal findings of blood chemistry; Z88.0 Allergy status to penicillin; I11.0 Hypertensive heart disease with heart failure; I50.9 Heart failure, unspecified; J44.9 Chronic obstructive pulmonary disease, unspecified; E11.9 Type 2 diabetes mellitus without complications
CPT/HCPCS: 36415; 71046; 80053; 82550; 82553; 84484; 85025; 93005; 93010; 99285

== ENCOUNTER → 2020-06-07 | Outpatient (CLI) | payer OTHER, MEDICARE ==
[2020-06-07 10:33] VITALS: BP 166/75
--- NOTE | 2020-06-07 10:33 | ER [facility] ASSESSMENT REPORT ---
Intake - In the Last 14 days Have you traveled outside [place]?: No Have you been in close contact with someone CONFIRMED: Yes Worked in Healthcare?: No - Symptoms Subjective Fever([place] feverish): No Chills: No Muscule Aches: No Runny Nose: No Sore Throat: No Cough (New or worsening chronic cough): No Shortness of breath: No Nausea or Vomiting: No Headache: No Abdominal Pain: No Diarrhea(3 or more loose stools in last 24 hours): No - Do you have any of the following Chronic lung disease: Asthma or emphysema or COPD: Yes Chronic Lung Disease Comment: copd Cystic Fibrosis: No Diabetes: Yes High Blood Pressure: Yes Cardiovascular Disease: Yes Cardiovascular Disease Comment: CHF Chronic Kidney Disease: No Chronic Liver Disease: No Chronic blood disorder like Sickle Cell Disease: No Weak immune system due to disease or medication: No Neurologic condition that limits movement: No Developmental delay - Moderate to Severe: No Recent (within past 2 weeks) or current : No Morbid Obesity (>100 pounds over ideal weight): No - Objective Temperature: 96.3 F Pulse Rate: 62 Respiratory Rate: 18 Blood Pressure: 166/75 O2 Sat by Pulse Oximetry: 97 Objective: Given above, testing performed: If Testing Performed: Test Specimen Type Sent to General - General Information source: Patient Notes: Patient presents to the [facility] for screening for the coronavirus. Patient has a history of COPD, diabetes, hypertension as well as CHF. Patient is a current smoker. Patient reports recent exposure to someone who tested positive. Patient is presently asymptomatic. - Related Data Allergies/Adverse Reactions: amoxicillin Adverse Reaction (Verified 05/16/20 13:55) GI upset Past Medical History - General Information source: Patient - Social History Smoking Status: Current Every Day Smoker Family History: Reviewed & Not Pertinent - Past Medical History Cardiac Medical History: Reports: Hx Congestive Heart Failure, Hx Hypertension Pulmonary Medical History: Reports: Hx COPD Endocrine Medical History: Reports: Hx Diabetes Mellitus Type 2 Renal/ Medical History: Denies: Hx Peritoneal Dialysis Musculoskeletal Medical History: Reports Hx Arthritis Psychiatric Medical History: Reports: Hx Depression Past Surgical History: Reports: Hx Appendectomy Physical Exam - Notes Notes: The patient was evaluated during the global Covid 19 pandemic, and that diagnosis was suspected/considered upon their initial presentation. Their evaluation, treatment and testing was consistent with current guidelines for patients who present with complaints or symptoms that may be related to Covid 19. Full physical exam could not be performed due to covid 19 isolation protocols. Constitutional: Nontoxic appearance, no acute distress Eyes: Nonicteric, extraocular movements intact, sclera clear Cardiovascular: Heart rate and rhythm regular, no JVD Respiratory: Breath sounds clear bilaterally, nonlabored breathing, no use of accessory muscles, no tachypnea Gastrointestinal: Abdomen not distended Muculoskeletal: Moves all extremities well Skin: Normal color Neuro: Awake alert oriented, normal speech Psych: Normal mood and affect Diagnostic Results Laboratory Results: Patient presents with upper respiratory symptoms worrisome for possible Covid 19. Patient does not have emergency worrying symptoms such as difficulty breathing, shortness of breath, chest pain, pressure, confusion or cyanosis. Patient appears suitable for discharge as vital signs are stable and patient is nontoxic in appearance. Good return precautions have been discussed with patient, patient verbalized understanding and is agreeable with discharge plan of care at this time. Patient Education/Counseling Counseling/Education: Patient was provided with discharge information including: As a person under investigation for Covid 19, the [place] department of Health and Human Services, division of public health advises you to adhere to the following guidance until your test results are reported to you. If your test result is positive, you will receive additional information from your provider and your local health department at that time. Remain at home until you are cleared by the health provider or public health authorities. Keep a log of visitors to your home, notify any visitors to your home of your isolation status. If you plan to move to a new address or leave the county, notify the local health department in your County. Call your doctor or seek care if you have an urgent medical need. Before seeking medical care, call ahead to get instructions from the provider before arriving at the medical office clinic or hospital. Notify them that you are being tested for the virus that causes Covid 19 so that arrangements can be made, as necessary, to prevent transmission to others in the healthcare setting. Next, notify the local health department in your county. If a medical emergency arises and you need to call 911, inform the first responders that you are being tested for the virus that causes Covid 19. Next, notify the local health department in your county. [facility] Discharge - Discharge Clinical Impression: Encounter for screening laboratory testing for COVID-19 virus in asymptomatic patient Condition: Stable Disposition: Home; Selfcare
== END ==
LOC: RDC 09:37
PROVIDERS: ATTEND Nurse Practitioner Family
DX: Z20.828 Contact with and (suspected) exposure to other viral communicable diseases (principal)
CPT/HCPCS: 87635; C9803; 99201; 99211